=== PATIENT | male | born 1945 | race Caucasian/White ===

== ENCOUNTER 2019-02-20 11:42 | Inpatient (IN) ==
[2019-02-20] MEDS ORDERED: Piperacillin/Tazobactam 3.375 GM in Water for inj. (sterile) 20 ML 20 ML IVP ONE (12:29)
[2019-02-20] MEDS ORDERED: 0.9 % Sodium Chloride 1,000 ML IVC ONE ×2 (12:29→13:43)
--- NOTE | 2019-02-20 12:31 | Emergency Department Note ---
Disposition Clinical Impression: Elevated troponin, Elevated serum creatinine Dog bite Qualifiers: Encounter type: sequela Qualified Code(s): W54.0XXS - Bitten by dog, sequela Disposition: Admitted As Inpatient Condition: Fair [facility]errals: [facility] [Primary Care Provider[facility] - Forms: ED Satisfaction Letter Time of Disposition: 16:48 General Adult HPI - General Chief complaint: ED Altered Mental Status Stated complaint: Dog bite / infection Time Seen by Provider: 02/20/19 12:02 Source: family Limitations: altered mental status - History of Present Illness Pain Scale: 0 - Related Data Allergies Allergy/AdvReac Type Severity Reaction Status Date / Time No Known Allergies Allergy Verified 02/20/19 13:25 Past Medical History - Past Medical History Medical history: Reports: other - Social History Smoking Status: Former smoker Smokeless Tobacco Status: No Alcohol use: Reports: none Drug use: Reports: none Physical Exam - General Limitations: altered mental status Course Vital Signs Temperature 98.1 F 02/20/19 11:50 Pulse Rate 93 02/20/19 11:50 Respiratory Rate 16 02/20/19 11:50 Blood Pressure 0/0 02/20/19 11:50 O2 Sat by Pulse Oximetry 96 02/20/19 11:50 Temperature 98.1 F 02/20/19 11:50 Pulse Rate 82 02/20/19 16:27 Respiratory Rate 17 02/20/19 16:27 Blood Pressure 111/85 02/20/19 16:27 O2 Sat by Pulse Oximetry 98 02/20/19 16:27 Oxygen Delivery Oxygen Delivery Nasal Cannula Medical Decision Making - Lab Data Result diagrams: 02/20/19 13:29 02/20/19 13:29 Lab Results 02/20/19 02/20/19 02/20/19 Range/Units 13:29 13:29 13:29 WBC 2.8 L (4.3-11.1) K/mcL RBC 5.55 H (4.19-5.50) M/mcL Hgb 17.9 H (12.9-16.9) g/dL Hct 54.0 H (37.5-50.1) % MCV 97.3 (83.0-100.0) fL MCH 32.3 (28.0-33.3) pg MCHC 33.1 (31.6-35.5) g/dL RDW 13.5 (11.5-14.5) % Plt Count 43 L (140-400) K/mcL MPV 13.0 H (9.4-12.4) fL Immature Gran % 1.4 (0-4) % Seg Neutrophils % 79.2 % Lymphocytes % 15.8 % Monocytes % 2.9 % Eosinophils % 0.0 % Basophils % 0.7 % Neutrophils # 2.2 (1.6-8.9) K/mcL Lymphocytes # 0.4 L (0.6-4.6) K/mcL Monocytes # 0.1 (0.0-1.3) K/mcL Eosinophils # 0.0 (0.0-0.6) K/mcL Basophils # 0.0 (0.0-0.2) K/mcL Reactive Lymphocytes Present A (Not Present) Platelet Estimate Decreased L (Normal) Immature Plt Fraction 9.4 H (1.1-6.1) % Anisocytosis 1+ A (Not Present) Sodium 140 (136-145) mEq/L Potassium 4.3 (3.5-5.1) mEq/L Chloride 101 (98-107) mEq/L Carbon Dioxide 23 (23-29) mEq/L BUN 48 H (8-23) mg/dL Creatinine 2.61 H (0.70-1.30) mg/dL Est GFR ( Amer) 30 L (> 60) Est GFR (Non-Af Amer) 24 L (> 60) BUN/Creatinine Ratio 18 (6-26) Glucose 135 H (70-105) mg/dL Calculated Osmolality 305 H (280-300) Lactic Acid 2.0 (0.5-2.2) mmol/L Calcium 9.4 (8.6-10.3) mg/dL Phosphorus 5.2 H (2.7-4.5) mg/dL Magnesium 3.1 H (1.6-2.6) mg/dL Total Bilirubin 1.1 H (0.3-1.0) mg/dL Direct Bilirubin 0.3 H (0.0-0.2) mg/dL Indirect Bilirubin 0.8 (0.0-1.2) mg/dL AST 107 H (13-39) Units/L ALT 48 (7-52) Units/L Alkaline Phosphatase 64 (34-104) Units/L Troponin I 0.06 H* (< 0.04) ng/mL Serum Total Protein 7.5 (6.4-8.9) g/dL Albumin 4.3 (3.5-5.7) g/dL Globulin 3.2 (2.4-3.5) g/dL Albumin/Globulin Ratio 1.3 (1.1-2.2) Attestation Statement - Attestation Attestation: I examined this patient and my medical decision-making was reviewed with the Resident Physician. I agree with the documented findings, disposition and treatment plan as described except to the extent set forth below. Patient presents to the ED with a chief complaint of a leg infection. Patient was bit by a dog 6 days ago. More red and painful. Patient is also been increasingly weak. Not eating or drinking. On examination he has 2 wounds on the left lower extremity. Erythema around the medial wound. Drainage from the puncture wound bilaterally. Plan. Septic workup. Antibiotics. Admission. Low blood pressure responded nicely to IV fluid bolus. He is received IV antibiotics of vancomycin and Zosyn. Wound and blood culture sent. Patient hemodynamically stable at this time. Accepted to medicine. Tibia/Fibula X-Ray 02/20/19 12:29 IMPRESSION: No acute bony abnormality. D/ / Jennie Ramirez Cha, MD / Jennie Ramirez Cha, MD Interpreting Provider: Jennie Ramirez Cha, MD revealed resident. Normal sinus rhythm with PACs. Inferior Q waves. Lateral T wave inversions.
[2019-02-20] MEDS ORDERED: *HR* FentaNYL (PF) 100 MCG/2 ML VIAL IVP ONE (12:53)
--- NOTE | 2019-02-20 13:02 | Emergency Department Note ---
Disposition Clinical Impression: Elevated troponin, Elevated serum creatinine Dog bite Qualifiers: Encounter type: sequela Qualified Code(s): W54.0XXS - Bitten by dog, sequela Disposition: Admitted As Inpatient Condition: Fair [facility]errals: [facility] [Primary Care Provider] - Forms: ED Satisfaction Letter Time of Disposition: 15:47 General Adult HPI - General Chief complaint: ED Altered Mental Status Stated complaint: Dog bite / infection Time Seen by Provider: 02/20/19 12:02 Source: family Limitations: altered mental status - History of Present Illness HPI Narrative: 73-year-old male past medical history of remote myocardial infarction presenting 6 days after being bit on the left ankle by his neighbor's dog. Family bedside states that the dog has not shown any symptoms of illness. He states he is up-to-date on his tetanus vaccination. Patient states he is having significant pain of the left ankle without radiation. Patient also states that he has some dizziness but states that this is chronic at baseline. Patient denies lightheadedness, dizziness, headache, chest pain or shortness of breath, abdominal pain nausea vomiting hematuria hematochezia or any other concerns or complaints at this time. Pain Scale: 0 - Related Data Allergies Allergy/AdvReac Type Severity Reaction Status Date / Time No Known Allergies Allergy Verified 02/20/19 13:25 Review of Systems: *See History of Present Illness for more detail Constitutional: Denies: fever, chills Cardiovascular: Denies: chest pain Respiratory: Denies: dyspnea, cough, hemoptysis Gastrointestinal: Denies: abdominal pain, nausea, vomiting, diarrhea, constipat ion, hematemesis, melena, hematochezia Genitourinary: Denies: hematuria Musculoskeletal: Admits to significant pain of the left ankle due to dog bite. Denies: back pain, neck pain Integumentary: Denies: rash Neurological: Admits to lightheadedness and dizziness. Denies: headache, weakness, numbness, paresthesias, difficulty with ambulation. Endocrine: Denies: fatigue Review of Systems: As Per HPI Limitations: ROS unobtainable due to patients medical condition Past Medical History - Past Medical History Medical history: Reports: other - Social History Smoking Status: Former smoker Smokeless Tobacco Status: No Alcohol use: Reports: none Drug use: Reports: none Physical Exam Constitutional: Patient appears ulcerative baseline, otherwise No acute distress Neuro: GCS 15, no overt focal neurological deficits Head: Atraumatic, normocephalic Eyes: Pupils equal, round and reactive to light, no scleral icterus, no conjunctival injection Neck: Trachea midline without deviation. Anterior neck is supple without swelling. *Chest: Symmetric chest wall rise *Heart: Cardiac rhythm and rate are regular with S1 and S2 , no S3 or S4 appreciated, no murmurs, gallops, rubs, or clicks. *Lungs: Lungs are clear to auscultation bilaterally, without accessory muscle use or prolonged expiratory phase. No wheezes, rhonchi or stridor appreciated. Abdomen: Abdomen is flat, soft to palpation, normal bowel sounds. No abdominal bruit auscultated. Non-distended, non-rigid, no organomegaly, no ascites appreciated. No pulsatile mass, no tenderness or guarding to palpation in all f our quadrants, no rebound Extremities: Normal capillary refill without evidence of pedal edema, joint swelling or erythema. Pulses/motor/sensory intact in bilateral lower ext remities. Patient has approximately 6 inch gash noted to his medial malleoli on the left foot with a puncture jennifer over the left anterior talus. There is erythema noted around these jhaveri without significant cellulitic change or exudate.. Psychiatric exam: Patient displays a normal affect and mood for the environment. No overt signs of hallucination. Integumentary: warm, dry, intact, normal color. No rash, cyanosis, diaphoresis, erythema, or pallor - General Limitations: altered mental status Course Course Narrative: Sepsis workup Troponin EKG, x-ray Treatment: Broad-spectrum antibiotics, fentanyl, IV fluids. Vital Signs Temperature 98.1 F 02/20/19 11:50 Pulse Rate 93 02/20/19 11:50 Respiratory Rate 16 02/20/19 11:50 Blood Pressure 0/0 02/20/19 11:50 O2 Sat by Pulse Oximetry 96 02/20/19 11:50 Temperature 98.1 F 02/20/19 11:50 Pulse Rate 72 02/20/19 15:17 Respiratory Rate 18 02/20/19 15:17 Blood Pressure 108/68 02/20/19 15:17 O2 Sat by Pulse Oximetry 97 02/20/19 15:17 Oxygen Delivery Oxygen Delivery Nasal Cannula Medical Decision Making - [facility] Narrative Medical decision making narrative: Patient laboratory consisted for elevated creatinine and troponin Imaging negative as well as EKG for acute pathology Patient will be admitted to hospitalist medicine service for IV antibiotics due to dog bite as well as further evaluation and management of elevated creatinine troponin. Patient and family bedside verbalized understanding and agreement with this plan. - Lab Data Lab results reviewed: Yes I reviewed the patient's lab results. Result diagrams: 02/20/19 13:29 02/20/19 13:29 Lab Results 02/20/19 02/20/19 02/20/19 Range/Units 13:29 13:29 13:29 WBC 2.8 L (4.3-11.1) K/mcL RBC 5.55 H (4.19-5.50) M/mcL Hgb 17.9 H (12.9-16.9) g/dL Hct 54.0 H (37.5-50.1) % MCV 97.3 (83.0-100.0) fL MCH 32.3 (28.0-33.3) pg MCHC 33.1 (31.6-35.5) g/dL RDW 13.5 (11.5-14.5) % Plt Count 43 L (140-400) K/mcL MPV 13.0 H (9.4-12.4) fL Immature Gran % 1.4 (0-4) % Seg Neutrophils % 79.2 % Lymphocytes % 15.8 % Monocytes % 2.9 % Eosinophils % 0.0 % Basophils % 0.7 % Neutrophils # 2.2 (1.6-8.9) K/mcL Lymphocytes # 0.4 L (0.6-4.6) K/mcL Monocytes # 0.1 (0.0-1.3) K/mcL Eosinophils # 0.0 (0.0-0.6) K/mcL Basophils # 0.0 (0.0-0.2) K/mcL Reactive Lymphocytes Present A (Not Present) Platelet Estimate Decreased L (Normal) Immature Plt Fraction 9.4 H (1.1-6.1) % Anisocytosis 1+ A (Not Present) Sodium 140 (136-145) mEq/L Potassium 4.3 (3.5-5.1) mEq/L Chloride 101 (98-107) mEq/L Carbon Dioxide 23 (23-29) mEq/L BUN 48 H (8-23) mg/dL Creatinine 2.61 H (0.70-1.30) mg/dL Est GFR ( Amer) 30 L (> 60) Est GFR (Non-Af Amer) 24 L (> 60) BUN/Creatinine Ratio 18 (6-26) Glucose 135 H (70-105) mg/dL Calculated Osmolality 305 H (280-300) Lactic Acid 2.0 (0.5-2.2) mmol/L Calcium 9.4 (8.6-10.3) mg/dL Phosphorus 5.2 H (2.7-4.5) mg/dL Magnesium 3.1 H (1.6-2.6) mg/dL Total Bilirubin 1.1 H (0.3-1.0) mg/dL Direct Bilirubin 0.3 H (0.0-0.2) mg/dL Indirect Bilirubin 0.8 (0.0-1.2) mg/dL AST 107 H (13-39) Units/L ALT 48 (7-52) Units/L Alkaline Phosphatase 64 (34-104) Units/L Troponin I 0.06 H* (< 0.04) ng/mL Serum Total Protein 7.5 (6.4-8.9) g/dL Albumin 4.3 (3.5-5.7) g/dL Globulin 3.2 (2.4-3.5) g/dL Albumin/Globulin Ratio 1.3 (1.1-2.2) - Radiology Data Radiology results reviewed: Yes I reviewed the patient's radiology results. Tibia/Fibula X-Ray 02/20/19 12:29 IMPRESSION: No acute bony abnormality. D/ / Jennie Ramirez Cha, MD / Jennie Ramirez Cha, MD Interpreting Provider: Jennie Ramirez Cha, MD - EKG Data EKG #1 EKG attestation: Yes I reviewed and interpreted this EKG. EKG results narrative: Patient EKG shows sinus rhythm with atrial premature complexes borderline left axis deviation heart of 79 bpm, LA interval of 168 ms, QRS treatment of a 2 ms, QT/QTc interval 3 through 4/3 at 3 ms respectively. There are no significant ST segment elevations, depressions, pathologic Q waves, abnormal T-wave inversions, or signs of acute ischemic change. This is no prior EKG available for comparison.
[2019-02-20 13:53] LABS: Basophils % 0.7 %; Hemoglobin 17.9 g/dL (12.9-16.9); Immature Granulocytes % 1.4 % (0-4)
[2019-02-20 13:55] LABS: Immature Platelets 9.4 % (1.1-6.1); Lymphocytes # 0.4 K/mcL (0.6-4.6); Lymphocytes % 15.8 %; Mean Corpuscular HGB Conc 33.1 g/dL (31.6-35.5); Mean Corpuscular Hemoglobin 32.3 pg (28.0-33.3); Mean Corpuscular Volume 97.3 fL (83.0-100.0); Monocytes # 0.1 K/mcL (0.0-1.3); Monocytes % 2.9 %; Neutrophils # 2.2 K/mcL (1.6-8.9); Platelet Count 43 K/mcL (140-400); Red Blood Count 5.55 M/mcL (4.19-5.50); Red Cell Distribution Width 13.5 % (11.5-14.5); Segmented Neutrophils % 79.2 %; White Blood Count 2.8 K/mcL (4.3-11.1)
[2019-02-20 14:16] LABS: Anisocytosis 1+ (Not Present); Platelet Estimate Decreased (Normal); Reactive Lymphocytes Present (Not Present)
[2019-02-20 14:23] LABS: Albumin 4.3 g/dL (3.5-5.7); Albumin/Globulin Ratio 1.3 (1.1-2.2); Bilirubin,Direct 0.3 mg/dL (0.0-0.2); Bilirubin,Indirect 0.8 mg/dL (0.0-1.2); Bilirubin,Total 1.1 mg/dL (0.3-1.0); Calcium 9.4 mg/dL (8.6-10.3); Globulin 3.2 g/dL (2.4-3.5); Magnesium 3.1 mg/dL (1.6-2.6); Phosphorous 5.2 mg/dL (2.7-4.5); Potassium 4.3 mEq/L (3.5-5.1); Total Protein 7.5 g/dL (6.4-8.9); Troponin I 0.06 ng/mL (< 0.04)
[2019-02-20] MEDS ORDERED: 0.9 % Sodium Chloride 1,000 ML IVC SCH (16:45)
[2019-02-20] MEDS ORDERED: Naloxone 0.4 MG/ML INJ IVP PRN (17:11)
[2019-02-20] MEDS ORDERED: *HR* HYDROcodone/Acet 5/325 mg TABLET PO PRN (17:11)
[2019-02-20] MEDS ORDERED: MOM Conc 10 ML UD.LIQ PO PRN (17:11)
--- NOTE | 2019-02-20 17:19 | Internal Med History&Physical ---
Date of Encounter: 02/20/19 Time of Encounter: 17:12 Internal Medicine - H&P: HPI Chief complaint: ankle pain Admitted From: Emergency Dept Plans for Post Hospital Care: Home History of present illness: Mr. Lemos is a 73 year old male with no significant past medical history who does not follow up with physicians who presents with left ankle pain after a dog bite 7 days ago. It was "the preacher down the road's bull dog" that bit him. As far as he knows it is a healthy dog. Patient is not the best historian and does not answer appropriately at times. There was no family members at bedside. He tells me that he lives with his . Talking to the ED physician did tell me that the patient has been acting like this since he presented. They believe he has dementia . He was alert to self and place only JACOB. Denies fever and came in due to the pain mainly. left tib/fib xray is negative in the ED. BP low on p resentation but came up with IV fluids. Was given Zosyn and vancomycin in the ED. patient slept in the ED were significant for leukopenia with a WBC count of 2.8. Hemoglobin was 17.9. Platelets were 43 only. Other labs were significant for creatinine of 2.6 with a BUN 48. Nothing to compare to in the past. Phosphorus was 5.2 and magnesium was 3.1. Total bilirubin was 1.1 and direct bili was 0.3. AST is elevated at 107 but normal ALT and alkaline phosphatase. Denies headache, fever, chills, dizziness, chest pain, shortness of breath, abdominal pain, diarrhea, constipation, urinary symptoms, or neurological symptoms. Past Med Surg Social Fam HX - Past Medical History Medical history: other Additional medical history: enlarged heart - Social History Smoking Status: Former smoker Smokeless Tobacco Status: No Alcohol use: none Drug use: none Internal Medicine - H&P: Meds Allergy/AdvReac Type Severity Reaction Status Date / Time No Known Allergies Allergy Verified 02/20/19 13:25 All Systems PM: A 10-system review of systems was performed and is negative for pertinent findings except as documented above in the HPI. - Constitutional Vitals: Temp Pulse Resp BP Pulse Ox 98.1 F 82 17 111/85 98 02/20/19 11:50 02/20/19 16:27 02/20/19 16:27 02/20/19 16:27 02/20/19 16:27 Exam: GEN: NAD HEENT: AT, NC, No cyanosis, oral mucosa is moist, No JVD Lymphatics: No lymphadenoapthy Eyes: Extrocular muscles intact, anicteric CVS:RRR. S1, S2, No m/r/g RESP: CTAB ABD: Soft, NT, ND, +BS EXT: No edema, left medial malleolus laceration noted with scattered but no drainage that extends across the medial malleolus horizontally., Other laceration is on the distal leg that is smaller in size with no drainage 2+ DP NEURO: Alert and oriented 2 but otherwise nonfocal, CN II-XII intact, No focal motor or sensory deficits Psych: Cooperative, Not anxious or depressed Internal Med - H&P Results - Labs CBC & Chem 7: 02/20/19 13:29 02/20/19 13:29 Labs: Short CBC 02/20/19 Range/Units 13:29 WBC 2.8 L (4.3-11.1) K/mcL Hgb 17.9 H (12.9-16.9) g/dL Hct 54.0 H (37.5-50.1) % Plt Count 43 L (140-400) K/mcL Neutrophils # 2.2 (1.6-8.9) K/mcL BMP 02/20/19 13:29 Sodium 140 Potassium 4.3 Chloride 101 Carbon Dioxide 23 BUN 48 H Creatinine 2.61 H Glucose 135 H Calcium 9.4 Cardiac Enzymes 02/20/19 Range/Units 13:29 Troponin I 0.06 H* (< 0.04) ng/mL Liver Function 02/20/19 Range/Units 13:29 Total Bilirubin 1.1 H (0.3-1.0) mg/dL Direct Bilirubin 0.3 H (0.0-0.2) mg/dL AST 107 H (13-39) Units/L ALT 48 (7-52) Units/L Alkaline Phosphatase 64 (34-104) Units/L Albumin 4.3 (3.5-5.7) g/dL - Impressions ITS Impressions Tibia/Fibula X-Ray 02/20/19 12:29 IMPRESSION: No acute bony abnormality. D/ / Jennie Ramirez Cha, MD / Jennie Ramirez Cha, MD Interpreting Provider: Jennie Ramirez Cha, MD - Assessment and Plan (1) Cellulitis Current Visit: Yes Status: Acute Assessment and plan: We will place patient on Zosyn and Flagyl. We will consult ID given dog bite. Follow-up on blood cultures. I do not see any drainage from the bites that can be cultured we will get a CT of the ankle. Check CRP and ESR Qualifiers: Site of cellulitis: extremity Site of cellulitis of extremity: lower extremity Laterality: left Qualified Code(s): L03.116 - Cellulitis of left lower limb (2) KEMI (acute kidney injury) Current Visit: Yes Status: Acute Assessment and plan: We will place on IV fluids for now. Unknown baseline. If no significant improvement we will check a renal ultrasound. Possibly dehydration and possibility of sepsis. Avoid nephrotoxins (3) Transaminitis Current Visit: Yes Status: Acute Assessment and plan: Has elevated LFTs possibly due to sepsis. I am worried about alcohol issues that he is not telling us about given his thrombocytopenia as well. We will check right upper quadrant ultrasound (4) Elevated troponin Current Visit: Yes Status: Acute Assessment and plan: Likely demand ischemia due infection vs KEMI. Will trend and place on tele. EKG with nothing acute indicative of ischemia (5) Thrombocytopenia Current Visit: Yes Status: Acute Assessment and plan: Unsure if chronic. I wonder if he has liver issues. Will monitor for now. (6) Metabolic encephalopathy Current Visit: Yes Status: Acute Assessment and plan: Possibly has some dementia at baseline. He is aware only to self and place. Maybe due to infection. Will check TSH, b12, folate, ammonia level. (7) DVT prophylaxis Current Visit: Yes Status: Acute Assessment and plan: SCDs - Time Spent With Patient Total time spent is greater than 50% in coordination of care (as documented) at patient's floor/unit and/or counseling patient:
[2019-02-20] MEDS: 0.9 % Sodium Chloride 1,000 ML IVC SCH (20:54)
[2019-02-20 20:59] LABS: Folate 9.9 ng/mL (3.0-16.0)
[2019-02-20] MEDS: MetroNIDAZOLE 500 MG/100 ML 500 MG/100 ML BAG IVPB SCH (23:05)
[2019-02-20] MEDS: Piperacillin/Tazobactam 3.375 GM in 0.9 % Sodium Chloride Mini Bag 100 ML IVPB SCH (23:22)
[2019-02-21] MEDS: 0.9 % Sodium Chloride 1,000 ML IVC SCH ×4 (02:06→23:47)
--- NOTE | 2019-02-21 07:52 | Internal Med Progress Note ---
Hospitalist Progress Note - Encounter Date of Encounter: 02/21/19 Time of Encounter: 07:50 - Subjective Interval History: Patient was seen and examined. No acute events. Seems to be more awake but still only A/O x2. CT lower ext on the left showed subcutaneous edema and a mention of small amount of subcutaneous hemorrhage and small amount of hemorrhage within anterior compartment musculature. Had a fever up to 100.6 yesterday. Admitted due to left leg pain from a dog bite 7 days ago. Denies alcohol use - Exam Vitals: Temp Pulse Resp BP Pulse Ox 99.3 F 99 19 146/78 91 02/21/19 07:29 02/21/19 07:29 02/21/19 07:29 02/21/19 07:29 02/21/19 07:29 Exam: GEN: NAD H CVS:RRR. S1, S2, No m/r/g RESP: CTAB ABD: Soft, NT, ND, +BS EXT: No edema, left medial malleolus laceration noted with scattered but no drainage that extends across the medial malleolus horizontally., Other laceration is on the distal leg that is smaller in size with no drainage 2+ DP NEURO: Alert and oriented 2 but otherwise nonfocal, CN II-XII intact, No focal motor or sensory deficits - Assessment and Plan (1) Cellulitis Current Visit: Yes Status: Acute Assessment and Plan: c/w Zosyn and Flagyl. ID to see. Discussed CT findings with ACS who will see him. Follow-up on blood cultures. I do not see any drainage from the bites that can be cultured we will get a CT of the ankle. ESR and CRP elevated. Check CPK (2) KEMI (acute kidney injury) Current Visit: Yes Status: Acute Assessment and Plan: c/w on IV fluids for now. Unknown baseline. f/u on labs this am. If no significant improvement we will check a renal ultrasound. Possibly dehydration and possibility of sepsis. Avoid nephrotoxins (3) Transaminitis Current Visit: Yes Status: Acute Assessment and Plan: Has elevated LFTs possibly due to sepsis. Denies alcohol use. We will check right upper quadrant ultrasound. f/u on labs this am. (4) Elevated troponin Current Visit: Yes Status: Acute Assessment and Plan: Likely demand ischemia due infection vs KEMI. trended and remains stable at .06, .07, .07. EKG with nothing acute indicative of ischemia (5) Thrombocytopenia Current Visit: Yes Status: Acute Assessment and Plan: Unsure if chronic. Also has leukopenia. I wonder if he has liver issues. Will monitor for now but may end up consulting hematology. RUQ US pending. (6) Metabolic encephalopathy Current Visit: Yes Status: Acute Assessment and Plan: Possibly has some dementia at baseline. TSH, b12, folate, ammonia level normal. More talkative this am but still only A/O x2. (7) DVT prophylaxis Current Visit: Yes Status: Acute Assessment and Plan: SCDs - Time Spent with Patient Total time spent is greater than 50% in coordination of care (as documented) at patient's floor/unit and/or counseling patient: Internal Medicine: Result - Labs CBC & Chem 7: 02/21/19 08:09 02/21/19 08:09 Labs: Short CBC 02/20/19 Range/Units 13:29 WBC 2.8 L (4.3-11.1) K/mcL Hgb 17.9 H (12.9-16.9) g/dL Hct 54.0 H (37.5-50.1) % Plt Count 43 L (140-400) K/mcL Neutrophils # 2.2 (1.6-8.9) K/mcL BMP 02/20/19 13:29 Sodium 140 Potassium 4.3 Chloride 101 Carbon Dioxide 23 BUN 48 H Creatinine 2.61 H Glucose 135 H Calcium 9.4 Cardiac Enzymes 02/20/19 02/20/19 02/21/19 Range/Units 13:29 19:54 03:08 Troponin I 0.06 H* 0.07 H* 0.07 H* (< 0.04) ng/mL Liver Function 02/20/19 Range/Units 13:29 Total Bilirubin 1.1 H (0.3-1.0) mg/dL Direct Bilirubin 0.3 H (0.0-0.2) mg/dL AST 107 H (13-39) Units/L ALT 48 (7-52) Units/L Alkaline Phosphatase 64 (34-104) Units/L Albumin 4.3 (3.5-5.7) g/dL - Impressions Impressions Tibia/Fibula X-Ray 02/20/19 12:29 IMPRESSION: No acute bony abnormality. D/ / Jennie Ramirez Cha, MD / Jennie Ramirez Cha, MD Interpreting Provider: Jennie Ramirez Cha, MD Lower Extremity CT 02/20/19 17:08 IMPRESSION: 1. Subcutaneous edema over the anterior aspect of the distal leg with small amount of subcutaneous hemorrhage and small amount of hemorrhage within the anterior compartment musculature. No radiopaque foreign body. 2. No acute osseous abnormality. D/ / Yung Servin MD / Yung Servin MD Interpreting Provider: Yung Servin MD Consult Discharge Plan - Plan [facility]errals: [facility] [Primary Care Provider] - (1) Cellulitis Qualifiers: Site of cellulitis: extremity Site of cellulitis of extremity: lower extremity Laterality: left Qualified Code(s): L03.116 - Cellulitis of left lower limb
[2019-02-21 08:18] LABS: Mean Platelet Volume 11.8 fL (9.4-12.4)
[2019-02-21 08:20] LABS: Hematocrit 44.8 % (37.5-50.1); Hemoglobin 14.4 g/dL (12.9-16.9); Lymphocytes # 0.3 K/mcL (0.6-4.6); Mean Corpuscular HGB Conc 32.1 g/dL (31.6-35.5); Mean Corpuscular Hemoglobin 31.9 pg (28.0-33.3); Mean Corpuscular Volume 99.1 fL (83.0-100.0); Monocytes # 0.1 K/mcL (0.0-1.3); Red Blood Count 4.52 M/mcL (4.19-5.50); Red Cell Distribution Width 13.7 % (11.5-14.5); White Blood Count 1.9 K/mcL (4.3-11.1)
[2019-02-21 08:38] LABS: Albumin 3.3 g/dL (3.5-5.7); Albumin/Globulin Ratio 1.3 (1.1-2.2); Bilirubin,Total 0.8 mg/dL (0.3-1.0); Calcium 8.3 mg/dL (8.6-10.3); Globulin 2.6 g/dL (2.4-3.5); Magnesium 2.4 mg/dL (1.6-2.6); Platelet Count 28 K/mcL (140-400); Potassium 4.2 mEq/L (3.5-5.1); Total Protein 5.9 g/dL (6.4-8.9)
[2019-02-21 08:49] LABS: Immature Platelets 8.9 % (1.1-6.1)
[2019-02-21] MEDS: MetroNIDAZOLE 500 MG/100 ML 500 MG/100 ML BAG IVPB SCH (08:50)
[2019-02-21] MEDS: Piperacillin/Tazobactam 3.375 GM in 0.9 % Sodium Chloride Mini Bag 100 ML IVPB SCH (08:50)
--- NOTE | 2019-02-21 09:03 | Electrocardiograph Report ---
[place] [id number] Test Date: 2019-02-20 Pat Name: Jae Lemos Department: [id number] Room: [facility] Gender: M Wool Supplier: : 1945 Requested By: Blaire See Order Number: [id number] Reading MD: Roney Moore Measurements Intervals [place] Rate: 79 P: 34 [place]: 168 QRS: -18 QRSD: 82 T: 75 QT: 334 QTc: 383 Interpretive Statements Sinus rhythm Atrial premature complexes Borderline left axis deviation low voltage, extremity leads Abnormal R-wave progression, late transition Baseline wander in lead(s) V1 Electronically Signed On 02-21-2019 9:01:52 EDT by Roney Moore
[2019-02-21 09:35] LABS: Neutrophils # 1.6 K/mcL (1.6-8.9)
[2019-02-21 09:38] LABS: Platelet Estimate Decreased (Normal); Reactive Lymphocytes Present (Not Present)
--- NOTE | 2019-02-21 10:50 | AcuteCare Surgery Consult Note ---
Date of Encounter: 02/21/19 Time of Encounter: 10:30 Assessment and Plan (1) Dog bite Current Visit: Yes Status: Acute Polymicrobial soft tissue infection secondary to dog bite. We would recommend continue with broad-spectrum antibiotics. We will add dressing changes with calcium alginate with silver. Qualifiers: Encounter type: initial encounter Qualified Code(s): W54.0XXA - Bitten by dog, initial encounter History of Present Illness Consult date: 02/21/19 Reason for consult: other (Dog bite) History of present illness: The patient is a 73-year-old male who sustained a dog bite to the left ankle. This was several days prior to admission to the hospital. He developed a very painful area of cellulitis involving the left ankle extending on the dorsum of the left foot he presented to the emergency room. He was found to have leukopenia with a white blood cell count 2800. CAT scan of the left lower extremity demonstrated some subfascial bleeding and inflammation, however, there was no subcutaneous air or fascia air. There is no evidence of deep abscess or necrosis. On physical examination he has 2 open wounds one on the lateral aspect of the ankle just above the lateral malleolus and one on the medial ankle just below and posterior to the medial malleolus. Both are draining purulent material. The patient appears to have a polymicrobial soft tissue infection secondary to dog bite. No debridement is necessary. No drainage of abscess is necessary. We would recommend continue with broad-spectrum antibiotic as well as dressing changes with calcium alginate with silver Past Med Surg Social Fam HX - Past Medical History Medical history: other Additional medical history: enlarged heart - Social History Smoking Status: Former smoker Smokeless Tobacco Status: No Alcohol use: none Drug use: none Medications and Allergies Allergy/AdvReac Type Severity Reaction Status Date / Time No Known Allergies Allergy Verified 02/20/19 13:25 Review of Systems All systems PM: The remainder of the systems were reviewed and are negative General Surgery Exam Initial Vital Signs Temp Pulse Resp BP Pulse Ox 98.1 F 93 16 0/0 96 02/20/19 11:50 02/20/19 11:50 02/20/19 11:50 02/20/19 11:50 02/20/19 11:50 - General physical appearance well developed, well nourished, no distress, other (Disorientation) - Neck no masses, no bruits, trachea midline, no lymphadectomy, no venous distension - Respiratory normal expansion, normal respiratory effort, clear to percussion, clear to auscultation - Cardiovascular Cardiovascular exam: Present: RRR, distant heart sounds - Abdomen Abdomen general surgery: Present: bowel sounds present, soft, non tender - Integumentary Integumentary general surgery: Present: other (Open bite wounds just above the lateral malleolus and just below the medial malleolus of the left ankle. There is some surrounding cellulitis extending onto the dorsum of the foot) - Neurologic Present: CN 2-12 grossly intact, normal coordination, normal sensation - Psychiatric Psychiatric general surgery: Present: other (The patient does not respond appropriately to my questions. He is not oriented to time he is oriented to person and place) - Additional Findings Palpable dorsalis pedis pulse left foot Exam Initial Vital Signs Temp Pulse Resp BP Pulse Ox 98.1 F 93 16 0/0 96 02/20/19 11:50 02/20/19 11:50 02/20/19 11:50 02/20/19 11:50 02/20/19 11:50 Results - Labs 02/21/19 08:09 02/21/19 08:09 Abnormal lab results WBC 1.9 K/mcL (4.3-11.1) L 02/21/19 08:09 RBC 5.55 M/mcL (4.19-5.50) H 02/20/19 13:29 Hgb 17.9 g/dL (12.9-16.9) H 02/20/19 13:29 Hct 54.0 % (37.5-50.1) H 02/20/19 13:29 Plt Count 28 K/mcL (140-400) L* 02/21/19 08:09 MPV 13.0 fL (9.4-12.4) H 02/20/19 13:29 10.0 % (0-4) H 02/21/19 08:09 0.3 K/mcL (0.6-4.6) L 02/21/19 08:09 Present (Not Present) A 02/21/19 08:09 Decreased (Normal) L 02/21/19 08:09 Immature Plt Fraction 8.9 % (1.1-6.1) H 02/21/19 08:09 1+ (Not Present) A 02/20/19 13:29 ESR 25 mm/hr (0-10) H 02/20/19 13:29 Chloride 109 mEq/L (98-107) H 02/21/19 08:09 BUN 36 mg/dL (8-23) H 02/21/19 08:09 1.71 mg/dL (0.70-1.30) H 02/21/19 08:09 Est GFR ( Amer) 48 (> 60) L 02/21/19 08:09 Est GFR (Non-Af Amer) 40 (> 60) L 02/21/19 08:09 Glucose 108 mg/dL (70-105) H 02/21/19 08:09 309 (280-300) H 02/21/19 08:09 Calcium 8.3 mg/dL (8.6-10.3) L 02/21/19 08:09 Phosphorus 5.2 mg/dL (2.7-4.5) H 02/20/19 13:29 Magnesium 3.1 mg/dL (1.6-2.6) H 02/20/19 13:29 1.1 mg/dL (0.3-1.0) H 02/20/19 13:29 0.3 mg/dL (0.0-0.2) H 02/20/19 13:29 AST 85 Units/L (13-39) H 02/21/19 08:09 486 Units/L (30-223) H 02/21/19 08:09 0.07 ng/mL (< 0.04) H* 02/21/19 03:08 18 mg/L (Less than 10) H 02/20/19 13:29 5.9 g/dL (6.4-8.9) L 02/21/19 08:09 3.3 g/dL (3.5-5.7) L 02/21/19 08:09 Vitamin B12 139 pg/mL (250-1100) L 02/20/19 19:54 Diabetes panel 02/20/19 02/21/19 Range/Units 13:29 08:09 Sodium 140 145 (136-145) mEq/L Potassium 4.3 4.2 (3.5-5.1) mEq/L Chloride 101 109 H (98-107) mEq/L Carbon Dioxide 23 24 (23-29) mEq/L BUN 48 H 36 H (8-23) mg/dL Creatinine 2.61 H 1.71 H (0.70-1.30) mg/dL Glucose 135 H 108 H (70-105) mg/dL Calcium 9.4 8.3 L (8.6-10.3) mg/dL AST 107 H 85 H (13-39) Units/L ALT 48 33 (7-52) Units/L Alkaline Phosphatase 64 59 (34-104) Units/L Albumin 4.3 3.3 L (3.5-5.7) g/dL Thyroid panel 02/20/19 Range/Units 19:54 TSH 2.115 (0.340-5.600) mcIU/mL Calcium panel 02/20/19 02/21/19 Range/Units 13:29 08:09 Calcium 9.4 8.3 L (8.6-10.3) mg/dL Phosphorus 5.2 H (2.7-4.5) mg/dL Albumin 4.3 3.3 L (3.5-5.7) g/dL Pituitary panel 02/20/19 02/20/19 02/21/19 Range/Units 13:29 19:54 08:09 Sodium 140 145 (136-145) mEq/L Potassium 4.3 4.2 (3.5-5.1) mEq/L Chloride 101 109 H (98-107) mEq/L Carbon Dioxide 23 24 (23-29) mEq/L BUN 48 H 36 H (8-23) mg/dL Creatinine 2.61 H 1.71 H (0.70-1.30) mg/dL Glucose 135 H 108 H (70-105) mg/dL Calcium 9.4 8.3 L (8.6-10.3) mg/dL TSH 2.115 (0.340-5.600) mcIU/mL Adrenal panel 02/20/19 02/21/19 Range/Units 13:29 08:09 Sodium 140 145 (136-145) mEq/L Potassium 4.3 4.2 (3.5-5.1) mEq/L Chloride 101 109 H (98-107) mEq/L Carbon Dioxide 23 24 (23-29) mEq/L BUN 48 H 36 H (8-23) mg/dL Creatinine 2.61 H 1.71 H (0.70-1.30) mg/dL Glucose 135 H 108 H (70-105) mg/dL Calcium 9.4 8.3 L (8.6-10.3) mg/dL Total Bilirubin 1.1 H 0.8 (0.3-1.0) mg/dL AST 107 H 85 H (13-39) Units/L ALT 48 33 (7-52) Units/L Alkaline Phosphatase 64 59 (34-104) Units/L Albumin 4.3 3.3 L (3.5-5.7) g/dL All other labs normal. - Imaging Chest x-ray: image reviewed CT scan - chest: image reviewed Additional studies: I personally reviewed the CAT scan of the left lower extremity. There is no subcutaneous or subfascial air. There is no evidence of abscess. He has mild inflammation at the area of the dog bite and possibly some minor bleeding in the anterior compartment. No evidence of deep abscess or tissue necrosis Consult Discharge Plan - Plan [facility]errals: [facility] [Primary Care Provider] -
[2019-02-21] MEDS: Acetaminophen 325 MG TABLET PO PRN ×2 (12:45→22:48)
--- NOTE | 2019-02-21 14:34 | Infectious Disease Consult ---
Infectious Disease-Consult - Encounter Date/Time Date of Encounter: 02/21/19 Time of Encounter: 14:31 - Data of Consult Patient: new to practice Reason for consult: Dog bite Consult date: 02/21/19 Requesting Physician: Phyllis Bernal Primary Care Provider: [place]CP [place] - [facility] HPI: Mr. Lemos is a 73 year old male with a past medical cardiomegaly. The patient was admitted to the hospital 02/20/19 for elevated troponin, elevated creatinine, and dog bite. We are consulted 02/21/19 for further workup and treatment rec ommendations for left lower extremity dog bite. Briefly, the patient's a 73-year-old male with past medical history as stated above. The patient's altered mental status limits his ability to provide me with an accurate history so most of the information is obtained from the medical record. The patient sustained a dog bite to the left lower extremity 6 days prior to admission. Upon arrival, he was afebrile. He was mildly tachycardic, but was otherwise hemodynamically stable. He was noted to have leukopenia with thrombocytopenia and acute kidney injury. Lactic acid was normal. CRP was mildly elevated at 18. Total bilirubin was elevated at 1.1 with an AST of 107, PLT of 48, alkaline phosphatase 64. Troponin was high at 0.06. Tib/fib x-ray was negative. Blood cultures were obtained 2 sets are no growth. Wound culture is preliminarily no growth. His CT of the left lower extremity that showed subcutaneous edema of the anterior aspect of the distal leg with small amount of subcutaneous hemorrhage and small amount of hemorrhage within the anterior compartment musculature, but no radiopaque foreign body or acute osseous or abnormality was noted. He was started empirically on Zosyn and Flagyl and was admitted to the hospital for further evaluation. Since admission, the patient has had some intermittent low-grade fevers with a MAXIMUM TEMPERATURE of 100.6. Today, his leukopenia and thrombus cytopenia or worsen he has developed 10% bands. His acute kidney injury is improved. LFTs have normalized. He does have an elevated CK level of 486. Troponin remains elevated at 0.07. He underwent a liver ultrasound that showed findings consistent with fatty liver. Acute care surgery was consulted and did not recommend surgical intervention at this time. Currently, he is on Zosyn and Flagyl. We have been asked to evaluate and make further recommendations. During my exam today, the patient is able to tell me that he did sustain a dog bite about a week prior to admission. He states it was his neighbor's dog and he is unsure if dog was vaccinated. He denies any fevers or chills or rigors. Denies any headache or neck pain. Denies chest pain, shortness of breath, or cough. Denies nausea, vomiting, diarrhea, or constipation. Denies abdominal pain or urinary complaints. Complaints of pain in the left lower extremity, but otherwise denies any acute issues or concerns. Denies oral thrush or skin rashes. The patient states he lives at home with his . He is retired. He denies any tobacco or illicit drug use. Reports a remote history of heavy alcohol use, but nothing for several years. He denies any recent travel. Denies chronic infectious diseases. - ROS Review of Systems: All systems reviewed and no additional remarkable complaints except as stated. - Results CBC & Chem 7: 02/21/19 08:09 02/21/19 08:09 - Exam Vitals: Temp Pulse Resp BP Pulse Ox 100.1 F H 80 18 143/74 91 02/21/19 11:35 02/21/19 11:35 02/21/19 11:35 02/21/19 11:35 02/21/19 11:35 Exam: Head: Atraumatic, normal inspection, normocephalic. Eye: EOMI, PERRLA, no scleral icterus noted. ENT: Mucous membranes moist. No odontogenic infection noted. Neck: Normal inspection, no meningismus. Respiratory: Clear to auscultation. No rales, respiratory distress, rhonchi, or wheezes noted. Cardiovascular: Regular rate and rhythm, S1 and S2 audible. No murmurs, rubs, or gallops. GI: Soft, nondistended, normal bowel sounds. Tenderness noted with palpation. Extremities:No joint swelling, pedal edema, or tenderness noted. Linear wound noted to the medial aspect of the left ankle with beefy red wound bed. No surrounding erythema or warmth noted. Tenderness noted with palpation. Small amount of serous drainage noted on the dressing. Additional wound noted to the anterior aspect of the left ankle without surrounding erythema or warmth. Tenderness noted with palpation. Small amount serous drainage noted on the dressing. Back: Normal inspection. No vertebral tenderness noted. Neurological: Alert, oriented 2, no focal deficits. Appears somewhat confused. Psychiatric: normal affect, normal mood. Skin: Dry, intact, warm. Normal color. No rashes. Allergy/AdvReac Type Severity Reaction Status Date / Time No Known Allergies Allergy Verified 02/20/19 13:25 - Assessment and Plan (1) Sepsis Current Visit: Yes Status: Acute The patient had 2 sepsis criteria on admission with an acute kidney injury and abnormal liver function tests. He developed worsening leukopenia and bandemia today. Likely secondary to left foot cellulitis, but given the patient's leukopenia and thrombocytopenia and fatty liver noted on ultrasound, concerning for chronic etiologies as well. We do not have any additional labs to compare. Blood cultures drawn 02/20/19 are no growth to date 2 sets. Qualifiers: Sepsis type: sepsis due to unspecified organism Qualified Code(s): A41.9 - Sepsis, unspecified organism SNOMED Code(s): 64701000 (2) Dog bite Current Visit: Yes Status: Acute Location: Left ankle. The patient states it was his neighbor's dog and he is unsure if the dog was vaccinated. CT of the lower extremity showed subcutaneous edema over the anterior aspect of the distal leg with small amount subcutaneous hemorrhage and small amount of hemorrhage within the anterior compartment musculature, but no radiopaque foreign body or acute osseous abnormality. CRP mildly elevated at 18. CK elevated at 486. The patient states he is up-to-date on his tetanus vaccine, but I am not sure how reliable the history the patient is. Currently on Zosyn and Flagyl. Qualifiers: Encounter type: initial encounter Qualified Code(s): W54.0XXA - Bitten by dog, initial encounter SNOMED Code(s): 018181314, 080566435 (3) Cellulitis Current Visit: Yes Status: Acute Location: Left foot and ankle. Likely secondary to recent dog bite. CT of the left lower extremity negative for abscess or acute osseous abnormality. CRP mildly elevated at 18. ESR was checked. Acute care surgery team consult it. Does not feel that there is any indication for surgical intervention at this time. Currently on Zosyn and Flagyl. Qualifiers: Site of cellulitis: extremity Site of cellulitis of extremity: lower extremity Laterality: left Qualified Code(s): L03.116 - Cellulitis of left lower limb SNOMED Code(s): 392065886 (4) KEMI (acute kidney injury) Current Visit: Yes Status: Acute Etiology: Unclear. Infection versus other. Unsure what the patient's baseline is as he has not had any labs done here prior to this hospitalization. Consider nephrology to evaluate. Strict I's and O's. Avoid nephrotoxins and dose adjust medications. SNOMED Code(s): 02222761, 22212334 (5) Elevated troponin Current Visit: Yes Status: Acute Etiology: Unclear. The patient denies any chest pain. Further workup and management per the primary team. SNOMED Code(s): 856909241, 517947264, 272275853 (6) Transaminitis Current Visit: Yes Status: Acute Etiology: Unclear. Resolved. Liver ultrasound showed findings consistent with fatty liver disease. The patient states he has a remote history of heavy alcohol use. SNOMED Code(s): 121053125, 428478473 (7) Thrombocytopenia Current Visit: Yes Status: Acute Etiology: Unclear. Infectious versus chronic etiologies. Heme/Onc consulted. SNOMED Code(s): 676547025 (8) Metabolic encephalopathy Current Visit: Yes Status: Acute Patient appears to have AMS. He is A/O x2. Unsure if this is his baseline. There is no family at the bedside and nursing is not aware. Consider CT of the head. No meningeal signs. SNOMED Code(s): 06034699 - Recommendations Recommendations: Await wound cultures to finalize. Await blood cultures to finalize. Check ESR. Discontinue Zosyn. Discontinue flagyl. Start Unasyn 3 grams IV 6H. Duration of treatment depends on the clinical picture. Past Med Surg Social Fam HX - Past Medical History Medical history: other Additional medical history: enlarged heart - Social History Smoking Status: Former smoker Smokeless Tobacco Status: No Alcohol use: none Drug use: none Consult Discharge Plan - Plan [facility]errals: [facility] [Primary Care Provider] - - Attending Attestation I have personally performed a face to face evaluation on this patient. I have reviewed and agree with the care plan. History and Exam by me shows: This is an addendum to original report dictated by Em Page CNP. Please refer to Em's note for full detail. Patient is a 73-year-old gentleman apparently was bitten by a dog on the left ankle about a week prior to admission. Assessment and plan: 1.Sepsis 2.Dog bite left ankle: CT of the lower extremities shows subcutaneous edema but no radiographic foreign bodies or acute osseous abnormality 3.Cellulitis left foot and ankle 4.Acute kidney injury etiology not clear 5.Transaminitis patient apparently also had history of heavy alcohol use 6.Metabolic encephalopathy Recommendations Discontinue Zosyn Discontinue Flagyl Start Unasyn 3 g IV every 6 hours Once clinically doing better will consider switching to oral antibiotics
[2019-02-21] MEDS ORDERED: Cyanocobalamin (B-12) 1,000 MCG/ML VIAL SQ ONE (17:00)
--- NOTE | 2019-02-21 17:03 | Oncology Inp Consult Note ---
Date of Encounter: 02/21/19 Time of Encounter: 12:00 Assessment and Plan (1) Thrombocytopenia Status: Acute Assessment and plan: Possibly from infectious process, left lower extremity skin changes swelling imaging findings once suggestive of local inflammation/infection. CT scan findings reviewed. On antibiotics Zosyn which could further cause thrombocytopenia, leukopenia. Hemoglobin hematocrit repeated back to normal, less suspicious for hematologic disorder/thrombotic microangiopathy. Fatty liver additional imaging may be necessary at later date to rule out cirrhosis portal hypertension. Vital hepatitis panel ordered coag panel to be obtained review of peripheral smear by pathology. B12 deficiency, subcutaneous injection him a oral supplementation ordered. SPEP ordered. REsults awaited. ID recommendations for treatment of cellulitis without osteomyelitis. No debridement planned at this time. Continue to monitor clinically/labs. - Data of Consult Requesting Physician: Phyllis Bernal Primary Care Provider: JULIO NE - Consult Narrative Reason for consult: Thrombocytopenia History of present illness: 73-year-old male, with history of? enlarged heart, fatty liver, coronary artery disease per history, hospitalized with left ankle swelling, pain following a dog bite 6 days ago per history. He has altered mental status is baseline and is unable to give any history today. Patient underwent additional lab works that showed leukopenia and thrombocytopenia. Hemoglobin has declined to normal range since hospitalization. A CT scan of the lower extremity had shown, subcutaneous edema over the anterior aspect of the distal leg with small amount of subcutaneous hemorrhage in the anterior compartment musculature. He is hospitalized for cellulitis, subcutaneous infection and is on antibiotics with Zosyn. Additional lab work show a white vitamin B12 of around 137. Ultrasound of the liver has shown fatty liver. Past Med Surg Social Fam HX - Past Medical History Medical history: other Additional medical history: enlarged heart - Social History Smoking Status: Former smoker Smokeless Tobacco Status: No Alcohol use: none Drug use: none Medications and Allergies Allergy/AdvReac Type Severity Reaction Status Date / Time No Known Allergies Allergy Verified 02/20/19 13:25 ROS unobtainable: due to mental status Review of systems: Patient answers few questions but unable to answer many. He reports left leg swelling and pain and is able to show slight of infection. Other history unreliable. Oncology - Exam - Constitutional General appearance: no acute distress - Head Head exam: Present: atraumatic, normal inspection - Eye Eye exam: Present: sclera anicteric - ENT ENT exam: Present: mucous membranes dry - Neck Additional comments: no palpable adenopathy - Respiratory Respiratory exam: Present: CTAB - Cardiovascular Cardiovascular exam: Present: +S1, +S2 - GI/Abdominal GI/Abdominal exam: Present: soft Additional comments: no tenderness, no HSM - Extremities Exam Additional comments: Left ankle swelling, discoloration open areas in dressing. Warm - Neurological Exam Additional comments: awake, not oriented. Moves all 4 ext and obeys commands - Skin Additional comments: discoloration left lower ext Consult Discharge Plan - Plan [facility]errals: [facility] [Primary Care Provider] - Inpatient Charges Provider: Dr. Marco Lopez Consult - Inpatient: [id number]
[2019-02-21] MEDS: Ampicillin/Sulbactam 3,000 MG in 0.9 % Sodium Chloride Mini Bag 100 ML IVPB SCH ×2 (17:31→23:46)
[2019-02-21 17:57] LABS: Prothrombin Time 11.6 Seconds (9.4-12.1)
[2019-02-21 17:59] LABS: Activated Partial Thrombo Time 32.7 Seconds (26.0-36.0)
[2019-02-21 18:01] LABS: Hepatitis B Surface Antigen Nonreactive (Nonreactive)
[2019-02-21 18:30] LABS: Hepatitis C Virus Antibody Nonreactive (Nonreactive)
[2019-02-21] MEDS ORDERED: Levalbuterol Neb 0.63 MG/3 ML IH ONE (21:08)
[2019-02-22] MEDS: Acetaminophen 325 MG TABLET PO PRN (05:06)
[2019-02-22] MEDS: Ampicillin/Sulbactam 3,000 MG in 0.9 % Sodium Chloride Mini Bag 100 ML IVPB SCH ×4 (05:07→23:15)
[2019-02-22] MEDS: Cyanocobalamin (B-12) 1,000 MCG TABLET PO SCH (09:04)
[2019-02-22] MEDS: 0.9 % Sodium Chloride 1,000 ML IVC SCH ×2 (09:04→17:33)
[2019-02-22 09:08] LABS: Basophils % 0.9 %; Hemoglobin 14.5 g/dL (12.9-16.9)
[2019-02-22 09:10] LABS: Hematocrit 44.1 % (37.5-50.1); Immature Granulocytes % 1.8 % (0-4); Immature Platelets 7.7 % (1.1-6.1); Lymphocytes # 0.3 K/mcL (0.6-4.6); Lymphocytes % 14.4 %; Mean Corpuscular HGB Conc 32.9 g/dL (31.6-35.5); Mean Corpuscular Hemoglobin 31.8 pg (28.0-33.3); Mean Corpuscular Volume 96.7 fL (83.0-100.0); Mean Platelet Volume 12.1 fL (9.4-12.4); Monocytes # 0.1 K/mcL (0.0-1.3); Monocytes % 4.1 %; Neutrophils # 1.7 K/mcL (1.6-8.9); Red Blood Count 4.56 M/mcL (4.19-5.50); Red Cell Distribution Width 13.8 % (11.5-14.5); Segmented Neutrophils % 78.8 %; White Blood Count 2.2 K/mcL (4.3-11.1)
[2019-02-22 09:23] LABS: Platelet Count 30 K/mcL (140-400)
[2019-02-22 09:27] LABS: Alanine Aminotransferase 27 Units/L (7-52); Albumin/Globulin Ratio 1.2 (1.1-2.2); Alkaline Phosphatase 58 Units/L (34-104); Aspartate Amino Transferase 99 Units/L (13-39); BUN/Creatinine Ratio 17 (6-26); Bilirubin,Total 0.9 mg/dL (0.3-1.0); Blood Urea Nitrogen 23 mg/dL (8-23); Calcium 8.1 mg/dL (8.6-10.3); Carbon Dioxide 19 mEq/L (23-29); Chloride 115 mEq/L (98-107); Globulin 2.5 g/dL (2.4-3.5); Glucose 105 mg/dL (70-105); Magnesium 2.2 mg/dL (1.6-2.6); Osmolality,Calculated 302 (280-300); Potassium 3.8 mEq/L (3.5-5.1); Sodium 144 mEq/L (136-145); Total Protein 5.5 g/dL (6.4-8.9); eGFR For African Americans > 60 (> 60); eGFR For Non-African Americans 53 (> 60)
[2019-02-22 10:45] LABS: Platelet Estimate Decreased (Normal)
--- NOTE | 2019-02-22 13:44 | Infectious Disease Progress No ---
ID Progress Note Date of Encounter: 02/22/19 Time of Encounter: 09:25 - Subjective Subjective: Patient seen and examined. No acute events noted overnight. Patient appears more alert and conversant today. Denies pain at this time. Denies fevers, chills, or rigors. Denies chest pain, shortness of breath, or cough. Denies nausea, vomiting, diarrhea, or constipation. Denies abdominal pain or urinary complaints. States his last bowel movement was 3 days ago. Denies oral thrush or skin lesions. Denies pain in his back, joints, or extremities. - Objective CBC & Chem 7: 02/24/19 09:01 02/24/19 09:01 - Exam Vitals: Temp Pulse Resp BP Pulse Ox 98.4 F 100 19 127/90 93 02/22/19 12:04 02/22/19 12:04 02/22/19 12:04 02/22/19 12:04 02/22/19 12:04 Exam: Head: Atraumatic, normal inspection, normocephalic. Eye: EOMI, PERRLA, no scleral icterus noted. ENT: Mucous membranes moist. No odontogenic infection noted. Neck: Normal inspection, no meningismus. Respiratory: Clear to auscultation. No rales, respiratory distress, rhonchi, or wheezes noted. Cardiovascular: Regular rate and rhythm, S1 and S2 audible. No murmurs, rubs, or gallops. GI: Soft, nondistended, normal bowel sounds. Tenderness noted with palpation. Extremities:No joint swelling, pedal edema, or tenderness noted. Left foot and ankle dressing C/D/I. No erythema noted beyond the edges of the dressing. Back: Normal inspection. No vertebral tenderness noted. Neurological: Alert, oriented 2, no focal deficits. Appears somewhat confused. Psychiatric: normal affect, normal mood. Skin: Dry, intact, warm. Normal color. No rashes. - Assessment and Plan (1) Sepsis Current Visit: Yes Status: Acute The patient had 2 sepsis criteria on admission with an acute kidney injury and abnormal liver function tests. Likely secondary to left foot cellulitis. Improved. WBC up a little. Febrile overnight with Tmax 102.9. LFTs and KEMI improved. Blood cultures drawn 02/20/19 are no growth to date 2 sets. Qualifiers: Qualified Code(s): A41.9 - Sepsis, unspecified organism SNOMED Code(s): 81339497 (2) Dog bite Current Visit: Yes Status: Acute Location: Left ankle. The patient states it was his neighbor's dog and he is unsure if the dog was vaccinated. CT of the lower extremity showed subcutaneous edema over the anterior aspect of the distal leg with small amount subcutaneous hemorrhage and small amount of hemorrhage within the anterior compartment musculature, but no radiopaque foreign body or acute osseous abnormality. CRP mildly elevated at 18. CK elevated at 486. The patient states he is up-to-date on his tetanus vaccine, but I am not sure how reliable the history the patient is. Currently on Unasyn. Qualifiers: Qualified Code(s): W54.0XXA - Bitten by dog, initial encounter SNOMED Code(s): 189671371, 937417653 (3) Cellulitis Current Visit: Yes Status: Acute Location: Left foot and ankle. Likely secondary to recent dog bite. CT of the left lower extremity negative for abscess or acute osseous abnormality. CRP mildly elevated at 18. Acute care surgery team consult it. Does not feel that there is any indication for surgical intervention at this time. Currently on Unasyn. Qualifiers: Qualified Code(s): L03.116 - Cellulitis of left lower limb SNOMED Code(s): 125404634 (4) KEMI (acute kidney injury) Current Visit: Yes Status: Acute Etiology: Unclear. Infection versus other. Unsure what the patient's baseline is as he has not had any labs done here prior to this hospitalization. Improved. Consider nephrology to evaluate. Strict I's and O's. Avoid nephrotoxins and dose adjust medications. SNOMED Code(s): 80309841, 37477992 (5) Elevated troponin Current Visit: Yes Status: Acute Etiology: Unclear. The patient denies any chest pain. Further workup and management per the primary team. SNOMED Code(s): 011504385, 223716541, 443667210 (6) Transaminitis Current Visit: Yes Status: Acute Etiology: Unclear. Resolved. Liver ultrasound showed findings consistent with fatty liver disease. The patient states he has a remote history of heavy alcohol use. SNOMED Code(s): 421325612, 043947546 (7) Thrombocytopenia Current Visit: Yes Status: Acute Etiology: Unclear. Infectious versus chronic etiologies. Heme/Onc consulted. SNOMED Code(s): 286649070 (8) Metabolic encephalopathy Current Visit: Yes Status: Acute Patient appears to have AMS. He is A/O x2. Improved. Unsure if this is his baseline. There is no family at the bedside and nursing is not aware. Consider CT of the head. No meningeal signs. SNOMED Code(s): 13408892 - Recommendations Recommendations: Await wound cultures to finalize. Await blood cultures to finalize. Thrombocytopenia/leukopenia workup per the hem/onc team. Wound care per ACS team. Continue Unasyn 3 grams IV 6H. Start Vancomycin IV. Pharmacy to dose. Goal trough ~15. Duration of treatment depends on the clinical picture. Consult Discharge Plan - Plan [facility]errals: [facility] [Primary Care Provider] - - Attending Attestation I have personally performed a face to face evaluation on this patient. I have reviewed and agree with the care plan. History and Exam by me shows: Assessment and plan: 1.Sepsis 2.Dog bite left ankle: CT of the lower extremities shows subcutaneous edema but no radiographic foreign bodies or acute osseous abnormality 3.Cellulitis left foot and ankle 4.Acute kidney injury etiology not clear 5.Transaminitis patient apparently also had history of heavy alcohol use 6.Metabolic encephalopathy Recommendations Discontinue Zosyn Discontinue Flagyl Start Unasyn 3 g IV every 6 hours Once clinically doing better will consider switching to oral antibiotics
--- NOTE | 2019-02-22 14:06 | Internal Med Progress Note ---
Hospitalist Progress Note - Encounter Date of Encounter: 02/22/19 Time of Encounter: 14:06 - Subjective Interval History: Patient was seen and examined at bedside he is alert and oriented to name and place does follow simple commands and sure patient's mental baseline there is no family present at this time - Exam Vitals: Temp Pulse Resp BP Pulse Ox 98.4 F 100 19 127/90 93 02/22/19 12:04 02/22/19 12:04 02/22/19 12:04 02/22/19 12:04 02/22/19 12:04 Exam: GEN: NAD H CVS:RRR. S1, S2, No m/r/g RESP: CTAB ABD: Soft, NT, ND, +BS EXT: No edema, left medial malleolus laceration noted with scattered but no drainage that extends across the medial malleolus horizontally., Other laceration is on the distal leg that is smaller in size with no drainage 2+ DP NEURO: Alert and oriented 2 but otherwise nonfocal, CN II-XII intact, No focal motor or sensory deficits - Assessment and Plan (1) KEMI (acute kidney injury) Current Visit: Yes Status: Acute Assessment and Plan: c/w on IV fluids for now. Unknown baseline. f/u on labs this am. If no significant improvement we will check a renal ultrasound. Possibly dehydration and possibility of sepsis. Avoid nephrotoxins 6/4 Appears to be better today we will continue to monitor and consult nephrology as needed-most likely secondary to dehydration/possibly sepsis (2) Cellulitis Current Visit: Yes Status: Acute Assessment and Plan: c/w Zosyn and Flagyl. ID to see. Discussed CT findings with ACS who will see him. Follow-up on blood cultures. I do not see any drainage from the bites that can be cultured we will get a CT of the ankle. ESR and CRP elevated. Check CPK 6/4 Seen by infectious disease and appreciate recommendations CT of left lower extremity negative for abscess or acute osseous abnormality CRPs are mildly elevated at 18 Acute surgery consult as an do not feel there is any indication for surgical intervention at this time Continue with Unasyn-place on vancomycin Wound care per ACS team Awaiting blood cultures and wound culture (3) Transaminitis Current Visit: Yes Status: Acute Assessment and Plan: Has elevated LFTs possibly due to sepsis. Denies alcohol use. We will check right upper quadrant ultrasound. f/u on labs this am. 02/22 Right upper quadrant ultrasound shows fatty liver-appears to be improving (4) Elevated troponin Current Visit: Yes Status: Acute Assessment and Plan: Likely demand ischemia due infection vs KEMI. trended and remains stable at .06, .07, .07. EKG with nothing acute indicative of ischemia- denies any chest pain (5) Thrombocytopenia Current Visit: Yes Status: Acute Assessment and Plan: Unsure if chronic. Also has leukopenia. I wonder if he has liver issues. Will monitor for now but may end up consulting hematology. RUQ US pending. 02/22 Unsure of chronic also leukopenic right upper quadrant ultrasound does show fatty liver-consult hematology as needed (6) DVT prophylaxis Current Visit: Yes Status: Acute Assessment and Plan: SCDs (7) Metabolic encephalopathy Current Visit: Yes Status: Acute Assessment and Plan: Possibly has some dementia at baseline. TSH, b12, folate, ammonia level normal. More talkative this am but still only A/O x2. 02/22 Alert and oriented 2-makes inappropriate comments and is impulsive and sure of mental baseline we will check CT of head - Time Spent with Patient Total time spent is greater than 50% in coordination of care (as documented) at patient's floor/unit and/or counseling patient: Internal Medicine: Result - Labs CBC & Chem 7: 02/22/19 08:31 02/22/19 08:31 Labs: Short CBC 02/22/19 Range/Units 08:31 WBC 2.2 L (4.3-11.1) K/mcL Hgb 14.5 (12.9-16.9) g/dL Hct 44.1 (37.5-50.1) % Plt Count 30 L* (140-400) K/mcL Neutrophils # 1.7 (1.6-8.9) K/mcL BMP 02/22/19 08:31 Sodium 144 Potassium 3.8 Chloride 115 H Carbon Dioxide 19 L BUN 23 Creatinine 1.34 H Glucose 105 Calcium 8.1 L Liver Function 02/22/19 Range/Units 08:31 Total Bilirubin 0.9 (0.3-1.0) mg/dL AST 99 H (13-39) Units/L ALT 27 (7-52) Units/L Alkaline Phosphatase 58 (34-104) Units/L Albumin 3.0 L (3.5-5.7) g/dL - ABG Interpretation ABG results: PT/INR, D-dimer PT 11.6 Seconds (9.4-12.1) 02/21/19 17:24 Consult Discharge Plan - Plan Referrals: [facility] [Primary Care Provider] - (2) Cellulitis Qualifiers: Site of cellulitis: extremity Site of cellulitis of extremity: lower extremity Laterality: left Qualified Code(s): L03.116 - Cellulitis of left lower limb
--- NOTE | 2019-02-22 18:04 | Oncology Inp Progress Note ---
<Vijaya Brady - Last Filed: 02/22/19 18:02> Date of Encounter: 02/22/19 Time of Encounter: 14:00 (1) Thrombocytopenia Current Visit: Yes Status: Acute Assessment and plan: Possibly from infectious process, left lower extremity skin changes swelling imaging findings once suggestive of local inflammation/infection. CT scan f indings reviewed. On antibiotics Zosyn which could further cause thrombocytopenia, leukopenia. Hemoglobin hematocrit repeated back to normal, less suspicious for hematologic disorder/thrombotic microangiopathy. Fatty liver additional imaging may be necessary at later date to rule out cirrhosis portal hypertension. Plan: Viral hepatitis panel- nonreactive coag panel Peripheral smear by pathology: thrombocytopenia. Unremarkable morphology. B12 deficiency, subcutaneous injection him vs oral supplementation ordered. SPEP ordered. Results awaited. ID recommendations for treatment of cellulitis without osteomyelitis. No debridement planned at this time. Continue to monitor clinically/labs. Oncology: Subj Interval history: Mr. Lemos is sleeping this afternoon. He awakens easily by voice and light touch. He appears confused and disoriented. His speech is mumbled at baseline per nursing staff. He is unable to tell me where he is or his name. He mumbled his month only. Attempted to discuss platelet count, but patient unable to understand information. No family at bedside. - Constitutional General appearance: cooperative, disheveled, no acute distress - Extremities Exam Extremities exam: Present: normal inspection. Absent: tenderness - Neurological Exam Neurological exam: Present: altered, speech deficit - Psychiatric Psychiatric exam: Present: normal affect, normal mood - Skin Skin exam: Present: dry, warm Oncology: Obj Data - Labs CBC & Chem 7: 02/22/19 08:31 02/22/19 08:31 Consult Discharge Plan - Plan [facility]errals: [facility] [Primary Care Provider] - Inpatient Charges Provider: Dr. Marco Lopez <Burt Lopez - Last Filed: 02/23/19 08:47> Date of Encounter: 02/23/19 (1) Thrombocytopenia Current Visit: Yes Status: Acute Assessment and plan: Lab data reviewed, patient seen bedside. I examined this patient and my medical decision-making was reviewed with the Advanced Practice Nurse, Vijaya Brady. I agree with the documented findings, disposition and treatment plan as described except to the extent set forth below. Oncology: Obj Data - Labs CBC & Chem 7: 02/23/19 07:11 02/23/19 07:11 Inpatient Charges Provider: Dr. Marco Lopez Follow up - Inpatient: [id number]
[2019-02-23] MEDS: 0.9 % Sodium Chloride 1,000 ML IVC SCH ×3 (02:28→18:19)
[2019-02-23] MEDS: Acetaminophen 325 MG TABLET PO PRN (02:28)
[2019-02-23] MEDS: Ampicillin/Sulbactam 3,000 MG in 0.9 % Sodium Chloride Mini Bag 100 ML IVPB SCH ×3 (05:42→18:15)
[2019-02-23 07:28] LABS: Mean Corpuscular HGB Conc 33.1 g/dL (31.6-35.5)
[2019-02-23 07:30] LABS: Basophils % 1.5 %; Hematocrit 42.6 % (37.5-50.1); Hemoglobin 14.1 g/dL (12.9-16.9); Immature Granulocytes % 2.5 % (0-4); Immature Platelets 7.8 % (1.1-6.1); Lymphocytes # 0.5 K/mcL (0.6-4.6); Lymphocytes % 17.8 %; Mean Corpuscular Hemoglobin 31.7 pg (28.0-33.3); Mean Corpuscular Volume 95.7 fL (83.0-100.0); Mean Platelet Volume 11.8 fL (9.4-12.4); Monocytes # 0.1 K/mcL (0.0-1.3); Monocytes % 2.9 %; Neutrophils # 2.1 K/mcL (1.6-8.9); Red Blood Count 4.45 M/mcL (4.19-5.50); Red Cell Distribution Width 13.6 % (11.5-14.5); Segmented Neutrophils % 75.3 %; White Blood Count 2.8 K/mcL (4.3-11.1)
[2019-02-23 07:33] LABS: Platelet Count 35 K/mcL (140-400)
[2019-02-23 07:46] LABS: Alanine Aminotransferase 25 Units/L (7-52); Albumin 2.8 g/dL (3.5-5.7); Albumin/Globulin Ratio 1.2 (1.1-2.2); Alkaline Phosphatase 65 Units/L (34-104); Aspartate Amino Transferase 102 Units/L (13-39); BUN/Creatinine Ratio 14 (6-26); Bilirubin,Direct 0.4 mg/dL (0.0-0.2); Bilirubin,Indirect 0.4 mg/dL (0.0-1.2); Bilirubin,Total 0.8 mg/dL (0.3-1.0); Blood Urea Nitrogen 20 mg/dL (8-23); Calcium 7.8 mg/dL (8.6-10.3); Carbon Dioxide 21 mEq/L (23-29); Chloride 117 mEq/L (98-107); Globulin 2.3 g/dL (2.4-3.5); Glucose 108 mg/dL (70-105); Osmolality,Calculated 309 (280-300); Potassium 3.7 mEq/L (3.5-5.1); Sodium 148 mEq/L (136-145); Total Protein 5.1 g/dL (6.4-8.9); eGFR For African Americans > 60 (> 60); eGFR For Non-African Americans 50 (> 60)
--- NOTE | 2019-02-23 09:13 | Event Note ---
Date of Encounter: 02/23/19 Time of Encounter: 10:00 This is 73 years old male presented with dog bite to his left ankle several days prior to admission to the hospital. He has had painful area of cellulitis involving the left ankle extending on the dorsum of the left foot. The CAT scan of the left lower extremity demonstrated some subfascial bleeding and inflammation, however, there was no subcutaneous air or fascia air.There is no evidence of deep abscess or necrosis. There are open wounds one on the lateral aspect of the ankle just above the lateral malleolus and one on the medial ankle just below and posterior to the medial malleolus and draining purulent material. This appears to have a polymicrobial soft tissue infection secondary to dog bite. Plan : Continue broad-spectrum antibiotics : Wound care and Dressing changes with calcium alginate with silver. : Follow-up in outpatient surgery in 2 weeks. : We will sign off, we will be happy to review as needed. .
[2019-02-23] MEDS: Cyanocobalamin (B-12) 1,000 MCG TABLET PO SCH (09:21)
--- NOTE | 2019-02-23 09:23 | Internal Med Progress Note ---
Hospitalist Progress Note - Encounter Date of Encounter: 02/23/19 Time of Encounter: 09:00 - Subjective Interval History: No acute events overnight. - Exam Vitals: Temp Pulse Resp BP Pulse Ox 98.8 F 88 18 162/95 93 02/23/19 07:42 02/23/19 07:42 02/23/19 07:42 02/23/19 07:42 02/23/19 07:42 Exam: GEN: NAD H CVS:RRR. S1, S2, No m/r/g RESP: CTAB ABD: Soft, NT, ND, +BS EXT: No edema, left medial malleolus laceration noted with scattered but no drainage that extends across the medial malleolus horizontally., Other laceration is on the distal leg that is smaller in size with no drainage 2+ DP NEURO: Alert and oriented 2 but otherwise nonfocal, CN II-XII intact, No focal motor or sensory deficits - Assessment and Plan (1) Cellulitis Current Visit: Yes Status: Acute Assessment and Plan: On vanc and unasyn. ID following Will obtain MRI left foot to r/o osteomyelitis due to temp spikes Follow up blood cultures. Obtain chest xray to r/o pneumonia (2) KEMI (acute kidney injury) Current Visit: Yes Status: Acute Assessment and Plan: Likely prerenal. Continue IV fluids (3) Transaminitis Current Visit: Yes Status: Acute Assessment and Plan: Has elevated LFTs possibly due to sepsis. Denies alcohol use. We will check right upper quadrant ultrasound. f/u on labs this am. 02/22 Right upper quadrant ultrasound shows fatty liver-appears to be improving (4) Elevated troponin Current Visit: Yes Status: Acute Assessment and Plan: Likely demand ischemia due infection vs KEMI. trended and remains stable at .06, .07, .07. EKG with nothing acute indicative of ischemia- denies any chest pain (5) Thrombocytopenia Current Visit: Yes Status: Acute Assessment and Plan: Unsure if chronic. Also has leukopenia. I wonder if he has liver issues. Will monitor for now but may end up consulting hematology. RUQ US pending. 02/22 Unsure of chronic also leukopenic right upper quadrant ultrasound does show fatty liver-consult hematology as needed (6) Metabolic encephalopathy Current Visit: Yes Status: Acute Assessment and Plan: Possibly has some dementia at baseline. TSH, b12, folate, ammonia level normal. More talkative this am but still only A/O x2. 6/5 Alert and oriented 2-makes inappropriate comments and is impulsive. CT head shows no acute abnormality (7) DVT prophylaxis Current Visit: Yes Status: Acute Assessment and Plan: SCDs - Time Spent with Patient Total time spent is greater than 50% in coordination of care (as documented) at patient's floor/unit and/or counseling patient: Internal Medicine: Result - Labs CBC & Chem 7: 02/23/19 07:11 02/23/19 07:11 Labs: Short CBC 02/22/19 02/23/19 Range/Units 08:31 07:11 WBC 2.2 L 2.8 L (4.3-11.1) K/mcL Hgb 14.5 14.1 (12.9-16.9) g/dL Hct 44.1 42.6 (37.5-50.1) % Plt Count 30 L* 35 L (140-400) K/mcL Neutrophils # 1.7 2.1 (1.6-8.9) K/mcL BMP 02/22/19 02/23/19 08:31 07:11 Sodium 144 148 H Potassium 3.8 3.7 Chloride 115 H 117 H Carbon Dioxide 19 L 21 L BUN 23 20 Creatinine 1.34 H 1.39 H Glucose 105 108 H Calcium 8.1 L 7.8 L Cardiac Enzymes 02/22/19 Range/Units 14:10 Troponin I 0.04 H* (< 0.04) ng/mL Liver Function 02/22/19 02/23/19 Range/Units 08:31 07:11 Total Bilirubin 0.9 0.8 (0.3-1.0) mg/dL Direct Bilirubin 0.4 H (0.0-0.2) mg/dL AST 99 H 102 H (13-39) Units/L ALT 27 25 (7-52) Units/L Alkaline Phosphatase 58 65 (34-104) Units/L Albumin 3.0 L 2.8 L (3.5-5.7) g/dL - ABG Interpretation ABG results: PT/INR, D-dimer PT 11.6 Seconds (9.4-12.1) 02/21/19 17:24 - Impressions Impressions Head CT 02/22/19 21:20 IMPRESSION: Mild small vessel ischemic change bilaterally Age-indeterminate ischemic change in the anterior left lentiform nucleus region. No acute abnormality otherwise D/ / Fer Keyes / Fer Keyes Interpreting Provider: Fer Keyes Consult Discharge Plan - Plan [facility]errals: [facility] [Primary Care Provider] - (1) Cellulitis Qualifiers: Site of cellulitis: extremity Site of cellulitis of extremity: lower extremity Laterality: left Qualified Code(s): L03.116 - Cellulitis of left lower limb
[2019-02-23] MEDS: Propranolol LA (24 HR) 60 MG CAP.SA.24H PO SCH (10:27)
--- NOTE | 2019-02-23 10:33 | Infectious Disease Progress No ---
ID Progress Note Date of Encounter: 02/23/19 Time of Encounter: 09:40 - Subjective Subjective: Patient seen and examined. No acute events noted overnight. Patient appears more alert and conversant today, but still intermittently confused. Denies pain at this time. Denies fevers, chills, or rigors. Denies chest pain, shortness of breath, or cough. Denies nausea, vomiting, diarrhea, or constipation. Denies abdominal pain or urinary complaints. Unsure when his last BM was. Denies oral thrush or skin lesions. Denies pain in his back, joints, or extremities. - Objective CBC & Chem 7: 02/24/19 09:01 02/24/19 09:01 - Exam Vitals: Temp Pulse Resp BP Pulse Ox 98.8 F 88 18 162/95 93 02/23/19 07:42 02/23/19 07:42 02/23/19 07:42 02/23/19 07:42 02/23/19 09:25 Exam: Head: Atraumatic, normal inspection, normocephalic. Eye: EOMI, PERRLA, no scleral icterus noted. ENT: Mucous membranes moist. No odontogenic infection noted. Neck: Normal inspection, no meningismus. Respiratory: Clear to auscultation. No rales, respiratory distress, rhonchi, or wheezes noted. Cardiovascular: Regular rate and rhythm, S1 and S2 audible. No murmurs, rubs, or gallops. GI: Soft, nondistended, normal bowel sounds. Tenderness noted with palpation. Extremities:No joint swelling, pedal edema, or tenderness noted. Scabbed lesion noted to the anterior aspect of the left ankle with some mild surrounding erythema. No purulent drainage. Ecchymosis noted to the anterior and lateral aspect of the left foot and ankle. Additional scabbed lesion noted to the medial aspect of the left ankle with some mild erythema noted. No purulent drainage. No fluctuance. Tenderness noted with palpation. Pain with range of motion. Neurological: Alert, oriented 2, no focal deficits. Appears somewhat confused. Psychiatric: normal affect, normal mood. Skin: Dry, intact, warm. Normal color. No rashes. - Assessment and Plan (1) Sepsis Current Visit: Yes Status: Acute The patient had 2 sepsis criteria on admission with an acute kidney injury and abnormal liver function tests. Likely secondary to left foot cellulitis. Improved. WBC up a little. Febrile overnight with Tmax 102.1. LFTs and KEMI improved. Blood cultures drawn 02/20/19 are no growth to date 2 sets. Qualifiers: Sepsis type: sepsis due to unspecified organism Qualified Code(s): A41.9 - Sepsis, unspecified organism SNOMED Code(s): 55348575 (2) Dog bite Current Visit: Yes Status: Acute Location: Left ankle. The patient states it was his neighbor's dog and he is unsure if the dog was vaccinated. CT of the lower extremity showed subcutaneous edema over the anterior aspect of the distal leg with small amount subcutaneous hemorrhage and small amount of hemorrhage within the anterior compartment musculature, but no radiopaque foreign body or acute osseous abnormality. CRP mildly elevated at 18. CK elevated at 486. The patient states he is up-to-date on his tetanus vaccine, but I am not sure how reliable the history the patient is. Clinically, the foot appears unchanged other than some ecchymosis, but concerned that the patient is still having fevers despite broad-spectrum antibiotic coverage. Currently on Unasyn and Vancomycin. Qualifiers: Encounter type: initial encounter Qualified Code(s): W54.0XXA - Bitten by dog, initial encounter SNOMED Code(s): 515557647, 869775906 (3) Cellulitis Current Visit: Yes Status: Acute Location: Left foot and ankle. Likely secondary to recent dog bite. CT of the left lower extremity negative for abscess or acute osseous abnormality. CRP mildly elevated at 18. Acute care surgery team consulted. Does not feel that there is any indication for surgical intervention at this time. Clinically improved. Currently on Unasyn and Vancomycin. Qualifiers: Site of cellulitis: extremity Site of cellulitis of extremity: lower extremity Laterality: left Qualified Code(s): L03.116 - Cellulitis of left lower limb SNOMED Code(s): 957960818 (4) KEMI (acute kidney injury) Current Visit: Yes Status: Acute Etiology: Unclear. Infection versus other. Unsure what the patient's baseline is as he has not had any labs done here prior to this hospitalization. Improved. Consider nephrology to evaluate. Strict I's and O's. Avoid nephrotoxins and dose adjust medications. SNOMED Code(s): 57066488, 59217644 (5) Elevated troponin Current Visit: Yes Status: Acute Etiology: Unclear. The patient denies any chest pain. Further workup and management per the primary team. SNOMED Code(s): 423229399, 179107431, 846863661 (6) Transaminitis Current Visit: Yes Status: Acute Etiology: Unclear. Resolved. Liver ultrasound showed findings consistent with fatty liver disease. The patient states he has a remote history of heavy alcohol use. SNOMED Code(s): 468770194, 694871863 (7) Thrombocytopenia Current Visit: Yes Status: Acute Etiology: Unclear. Infectious versus chronic etiologies. Heme/Onc consulted. SNOMED Code(s): 072480945 (8) Metabolic encephalopathy Current Visit: Yes Status: Acute Patient appears to have AMS. He is A/O x2. Improved. Unsure if this is his baseline. There is no family at the bedside and nursing is not aware. CT head shows age-indeterminant ischemic changes to the anterior left lentiform nucleus. No acute changes noted. No meningeal signs. SNOMED Code(s): 49201031 - Recommendations Recommendations: Repeat blood cultures x 2 sets now. Repeat ESR, CRP, and CK level. Await wound cultures to finalize. Await blood cultures to finalize. Thrombocytopenia/leukopenia workup per the hem/onc team. Wound care per ACS team. Consider MRI to the left foot/ankle. Continue Unasyn 3 grams IV 6H. Continue Vancomycin IV. Pharmacy to dose. Goal trough ~15. Duration of treatment depends on the clinical picture. Consult Discharge Plan - Plan [facility]errals: [facility] [Primary Care Provider] - - Attending Attestation I have personally performed a face to face evaluation on this patient. I have reviewed and agree with the care plan. History and Exam by me shows: Assessment and plan: 1.Sepsis 2.Dog bite left ankle: CT of the lower extremities shows subcutaneous edema but no radiographic foreign bodies or acute osseous abnormality 3.Cellulitis left foot and ankle 4.Acute kidney injury etiology not clear 5.Transaminitis patient apparently also had history of heavy alcohol use 6.Metabolic encephalopathy Recommendations Repeat blood cultures x 2 sets now. Repeat ESR, CRP, and CK level. Await wound cultures to finalize. Await blood cultures to finalize. Thrombocytopenia/leukopenia workup per the hem/onc team. Wound care per ACS team. Consider MRI to the left foot/ankle. Continue Unasyn 3 grams IV 6H. Continue Vancomycin IV. Pharmacy to dose. Goal trough ~15. Duration of treatment depends on the clinical picture.
[2019-02-23 11:38] LABS: C-Reactive Protein 93 mg/L (Less than 10); Creatine Kinase 221 Units/L (30-223)
[2019-02-23 11:51] LABS: Bilirubin,Urine Negative (Negative); Blood,Urine Small (Negative); Clarity,Urine Cloudy (Clear); Color,Urine Yellow (Yellow); Glucose,Urine (UA) Normal (Normal); Ketones,Urine 15 mg/dL (Negative); Leukocyte Esterase,Urine Negative (Negative); Nitrite,Urine Negative (Negative); Protein,Urine 100 mg/dL (Neg-Trace); Specific Gravity,Urine 1.019 (1.010-1.025)
[2019-02-23 11:53] LABS: Bacteria,Urine None Seen per hpf (None-Few); Hyaline Casts,Urine Few per lpf (None-Few); Squamous Epithelial Cell,Urine Many per lpf (None-Few); WBC,Urine 15-30 per hpf (0-3)
--- NOTE | 2019-02-23 13:43 | Oncology Inp Progress Note ---
Date of Encounter: 02/23/19 Time of Encounter: 08:00 (1) Thrombocytopenia Current Visit: Yes Status: Acute Assessment and plan: Thrombocytopenia without any anemia, low blood cell count, prior lab works reviewed the per discussion chronic thrombus cytopenia possible immune etiology versus sequestration. Antibiotics change, currently on Unasyn and vancomycin white blood cell count platelets stable he is not clinically bleeding. Mentation at baseline per family and records. Peripheral smear does not show any evidence of hemolysis platelet counts overall decreased. Oncology: Subj Interval history: PAtient seen examined. He is not oriented to answer qus appropriately - Constitutional General appearance: no acute distress - Head Head exam: Present: atraumatic, normal inspection - Neck Additional comments: no palpable lumps - Respiratory Respiratory exam: Present: CTAB - GI/Abdominal GI/Abdominal exam: Present: normal bowel sounds, soft - Extremities Exam Additional comments: left lower ext wound n dressing Oncology: Obj Data - Labs CBC & Chem 7: 02/23/19 07:11 02/23/19 07:11 Consult Discharge Plan - Plan [facility]errals[facility] [Primary Care Provider] - Inpatient Charges Provider: Dr. Marco Lopez Follow up - Inpatient: [id number]
[2019-02-24] MEDS: Ampicillin/Sulbactam 3,000 MG in 0.9 % Sodium Chloride Mini Bag 100 ML IVPB SCH ×5 (00:02→23:28)
[2019-02-24] MEDS: 0.9 % Sodium Chloride 1,000 ML IVC SCH (05:08)
[2019-02-24 08:40] LABS: Alpha 2 Globulin (PEP) 0.96 g/dL (0.48-1.05); Beta Globulin (PEP) 0.85 g/dL (0.48-1.10)
--- NOTE | 2019-02-24 08:42 | Internal Med Progress Note ---
Hospitalist Progress Note - Encounter Date of Encounter: 02/24/19 Time of Encounter: 08:30 - Subjective Interval History: No acute events overnight. Patient still has some confusion this am - Exam Vitals: Temp Pulse Resp BP Pulse Ox 98.6 F 87 24 156/85 90 02/24/19 07:09 02/24/19 07:09 02/24/19 07:09 02/24/19 07:09 02/24/19 07:09 Exam: GEN: NAD CVS:RRR. S1, S2, No m/r/g RESP: CTAB ABD: Soft, NT, ND, +BS EXT: No edema, left medial malleolus laceration noted with scattered but no drainage that extends across the medial malleolus horizontally., Other laceration is on the distal leg that is smaller in size with no drainage 2+ DP NEURO: Alert and oriented 2 but otherwise nonfocal, CN II-XII intact, No focal motor or sensory deficits - Assessment and Plan (1) Metabolic encephalopathy Current Visit: Yes Status: Acute Assessment and Plan: Possibly has some dementia at baseline but per family has apparently been more confused than usual CT head negative for any acute abnormalities. MRI head ordered, neuro consulted and recs apppreciated Considering rabies as a possibility for unresolving confusion, but patient does not have the classic signs of rabies Discussed with ID, will review guidelines for window for administering rabies vaccine/ immunoglobulin Will attempt to track down dog for observation for rabies (2) Cellulitis Current Visit: Yes Status: Acute Assessment and Plan: On vanc and unasyn. ID following Will obtain MRI left foot to r/o osteomyelitis due to temp spikes Follow up blood cultures. Chest xray for pneumonia came back negative Podiatry consulted for foot cellulitis and recs appreciated (3) KEMI (acute kidney injury) Current Visit: Yes Status: Acute Assessment and Plan: Likely prerenal. Continue IV fluids (4) Transaminitis Current Visit: Yes Status: Acute Assessment and Plan: Has elevated LFTs possibly due to sepsis. Denies alcohol use. We will check right upper quadrant ultrasound. f/u on labs this am. 6/4 Right upper quadrant ultrasound shows fatty liver-appears to be improving (5) Elevated troponin Current Visit: Yes Status: Acute Assessment and Plan: Likely demand ischemia due infection vs KEMI. trended and remains stable at .06, .07, .07. EKG with nothing acute indicative of ischemia- denies any chest pain (6) Thrombocytopenia Current Visit: Yes Status: Acute Assessment and Plan: Unsure if chronic. Also has leukopenia. I wonder if he has liver issues. Will monitor for now but may end up consulting hematology. RUQ US pending. 02/22 Unsure of chronic also leukopenic right upper quadrant ultrasound does show fatty liver-consult hematology as needed (7) DVT prophylaxis Current Visit: Yes Status: Acute Assessment and Plan: SCDs - Time Spent with Patient Total time spent is greater than 50% in coordination of care (as documented) at patient's floor/unit and/or counseling patient: Internal Medicine: Result - Labs CBC & Chem 7: 02/24/19 09:01 02/24/19 09:01 Labs: Urine 02/23/19 Range/Units 11:40 Urine Color Yellow (Yellow) Urine Clarity Cloudy A (Clear) Urine pH 6.0 (5.0-8.0) pH Units Ur Specific [place] 1.019 (1.010-1.025) Urine Protein 100 H (Neg-Trace) mg/dL Urine Glucose (UA) Normal (Normal) mg/dL - ABG Interpretation ABG results: PT/INR, D-dimer PT 11.6 Seconds (9.4-12.1) 02/21/19 17:24 - Impressions Impressions Foot MRI 02/23/19 13:57 IMPRESSION: 1. No osteomyelitis or other acute osseous abnormality. 2. Subcutaneous edema compatible with cellulitis. No drainable fluid collection. 3. Mild edema within the anterior compartment musculature compatible with myositis versus contusion. Small focus of heterogeneous signal in the extensor digitorum longus muscle likely representing hemorrhage. D/ / Yung Servin MD / Yung Servin MD Interpreting Provider: Yung Servin MD Chest X-Ray 02/23/19 16:41 IMPRESSION: No radiographic evidence of acute cardiopulmonary disease. D/ / Prasad Palomino / Prasad Palomino Interpreting Provider: Prasad Palomino Consult Discharge Plan - Plan [facility]errals: [facility] [Primary Care Provider] - (2) Cellulitis Qualifiers: Site of cellulitis: extremity Site of cellulitis of extremity: lower extremity Laterality: left Qualified Code(s): L03.116 - Cellulitis of left lower limb
[2019-02-24 09:27] LABS: Hemoglobin 14.5 g/dL (12.9-16.9)
[2019-02-24 09:29] LABS: Basophils % 1.1 %; Eosinophils % 0.3 %; Hematocrit 44.2 % (37.5-50.1); Immature Granulocytes % 3.2 % (0-4); Immature Platelets 7.9 % (1.1-6.1); Lymphocytes # 0.8 K/mcL (0.6-4.6); Lymphocytes % 20.2 %; Mean Corpuscular HGB Conc 32.8 g/dL (31.6-35.5); Mean Corpuscular Hemoglobin 31.9 pg (28.0-33.3); Mean Corpuscular Volume 97.4 fL (83.0-100.0); Mean Platelet Volume 11.8 fL (9.4-12.4); Monocytes # 0.2 K/mcL (0.0-1.3); Neutrophils # 2.7 K/mcL (1.6-8.9); Red Blood Count 4.54 M/mcL (4.19-5.50); Red Cell Distribution Width 13.7 % (11.5-14.5); Segmented Neutrophils % 71.2 %; White Blood Count 3.8 K/mcL (4.3-11.1)
[2019-02-24 09:46] LABS: BUN/Creatinine Ratio 18 (6-26); Blood Urea Nitrogen 23 mg/dL (8-23); Calcium 7.9 mg/dL (8.6-10.3); Carbon Dioxide 20 mEq/L (23-29); Chloride 121 mEq/L (98-107); Glucose 123 mg/dL (70-105); Osmolality,Calculated 315 (280-300); Potassium 3.5 mEq/L (3.5-5.1); Sodium 150 mEq/L (136-145); eGFR For African Americans > 60 (> 60); eGFR For Non-African Americans 57 (> 60)
[2019-02-24] MEDS: Cyanocobalamin (B-12) 1,000 MCG TABLET PO SCH (09:54)
[2019-02-24] MEDS: Propranolol LA (24 HR) 60 MG CAP.SA.24H PO SCH (09:55)
[2019-02-24 09:59] LABS: Platelet Count 59 K/mcL (140-400)
--- NOTE | 2019-02-24 10:37 | Infectious Disease Progress No ---
ID Progress Note Date of Encounter: 02/24/19 Time of Encounter: 09:10 - Subjective Subjective: Patient seen and examined. No acute events noted overnight. Patient appears more alert and conversant today, but still intermittently confused and difficult to understand. Per nursing who spoke with patient's family, the patient is usually alert and oriented and continent of bowel and bladder. Denies pain at this time. Denies fevers, chills, or rigors. Denies chest pain, shortness of breath, or cough. Denies nausea, vomiting, diarrhea, or constipation. Denies abdominal pain or urinary complaints. States last BM was last night. Denies oral thrush or skin lesions. Denies pain in his back, joints, or extremities. - Objective CBC & Chem 7: 02/25/19 03:27 02/25/19 03:27 - Exam Vitals: Temp Pulse Resp BP Pulse Ox 98.6 F 87 24 156/85 90 02/24/19 07:09 02/24/19 07:09 02/24/19 07:02/24/19 07:09 02/24/19 09:26 Exam: Head: Atraumatic, normal inspection, normocephalic. Eye: EOMI, PERRLA, no scleral icterus noted. ENT: Mucous membranes moist. No odontogenic infection noted. Neck: Normal inspection, no meningismus. Respiratory: Clear to auscultation. No rales, respiratory distress, rhonchi, or wheezes noted. Cardiovascular: Regular rate and rhythm, S1 and S2 audible. No murmurs, rubs, or gallops. GI: Soft, nondistended, normal bowel sounds. Tenderness noted with palpation. Extremities:No joint swelling, pedal edema, or tenderness noted. Scabbed lesion noted to the anterior aspect of the left ankle with some mild surrounding erythema. No purulent drainage. Left ankle dressing C/D/I. No erythema extending above or below the dressing. Non-tender. Pain with ROM of the ankle. Neurological: Alert, oriented 2, no focal deficits. Appears somewhat confused. Psychiatric: normal affect, normal mood. Skin: Dry, intact, warm. Normal color. No rashes. - Assessment and Plan (1) Sepsis Current Visit: Yes Status: Acute The patient had 2 sepsis criteria on admission with an acute kidney injury and abnormal liver function tests. Likely secondary to left foot cellulitis. No labs checked today. Afebrile overnight. Still intermittently tachycardic. Blood cultures drawn 02/20/19 are no growth to date 2 sets. Repeat blood cultures drawn 02/23/19 are pending x 2 sets. Concern for additional source given the recurrence of fevers and lack of im provement in the patient's mental status despite broad-spectrum antibiotics and the leg is not that impressive. Qualifiers: Sepsis type: sepsis due to unspecified organism Qualified Code(s): A41.9 - Sepsis, unspecified organism SNOMED Code(s): 25754186 (2) Dog bite Current Visit: Yes Status: Acute Location: Left ankle. The patient states it was his neighbor's dog and he is unsure if the dog was vaccinated. CT of the lower extremity showed subcutaneous edema over the anterior aspect of the distal leg with small amount subcutaneous hemorrhage and small amount of hemorrhage within the anterior compartment musculature, but no radiopaque fo reign body or acute osseous abnormality. CRP mildly elevated at 18. CK elevated at 486. The patient states he is up-to-date on his tetanus vaccine, but I am not sure how reliable the history the patient is. Clinically, the foot appears unchanged other than some ecchymosis, but concerned that the patient is still having fevers despite broad-spectrum antibiotic coverage. MRI of the left foot showed no osteomyelitis or other acute osseous abnormality. There is subcutaneous edema compatible with cellulitis, but no drainable fluid collection. There is mild edema within the anterior compartment musculature compatible with myositis versus contusion. A small focus of heterogenous signal in the extensor digitorum longus muscle likely representing hemorrhage. Currently on Unasyn and Vancomycin. Qualifiers: Encounter type: initial encounter Qualified Code(s): W54.0XXA - Bitten by dog, initial encounter SNOMED Code(s): 015011869, 899490528 (3) Cellulitis Current Visit: Yes Status: Acute Location: Left foot and ankle. Likely secondary to recent dog bite. CT of the left lower extremity negative for abscess or acute osseous abnormality. CRP mildly elevated at 18. Acute care surgery team consulted. Does not feel that there is any indication for surgical intervention at this time. Clinically improved. Currently on Unasyn and Vancomycin. Qualifiers: Site of cellulitis: extremity Site of cellulitis of extremity: lower extremity Laterality: left Qualified Code(s): L03.116 - Cellulitis of left lower limb SNOMED Code(s): 123972645 (4) KEMI (acute kidney injury) Current Visit: Yes Status: Acute Etiology: Unclear. Infection versus other. Unsure what the patient's baseline is as he has not had any labs done here prior to this hospitalization. Improved. No labs checked today. Consider nephrology to evaluate. Strict I's and O's. Avoid nephrotoxins and dose adjust medications. SNOMED Code(s): 69163412, 26783152 (5) Elevated troponin Current Visit: Yes Status: Acute Etiology: Unclear. The patient denies any chest pain. Further workup and management per the primary team. SNOMED Code(s): 987814568, 215439496, 046629989 (6) Transaminitis Current Visit: Yes Status: Acute Etiology: Unclear. Resolved. Liver ultrasound showed findings consistent with fatty liver disease. The patient states he has a remote history of heavy alcohol use. SNOMED Code(s): 402910033, 423437513 (7) Thrombocytopenia Current Visit: Yes Status: Acute Etiology: Unclear. Infectious versus chronic etiologies. No labs checked today. Heme/Onc consulted. SNOMED Code(s): 602214162 (8) Metabolic encephalopathy Current Visit: Yes Status: Acute Patient appears to have AMS. He is A/O x2. Etiology unclear. Improved. Nursing states family reports patient is alert, oriented x3 and completely independent normally. CT head shows age-indeterminant ischemic changes to the anterior left lentiform nucleus. No acute changes noted. No meningeal signs. Ammonia level normal on admission. SNOMED Code(s): 28712108 - Recommendations Recommendations: Get CBC and BMP. Await repeat blood cultures. Await wound cultures to finalize. Await blood cultures to finalize. Thrombocytopenia/leukopenia workup per the hem/onc team. Wound care per ACS team. Consider Podiatry to evaluate. Consider Neurology to evaluate. Continue Unasyn 3 grams IV Q6H. Continue Vancomycin IV. Pharmacy to dose. Goal trough ~15. Duration of treatment depends on the clinical picture. Consult Discharge Plan - Plan [facility]errals: [facility] [Primary Care Provider] - - Attending Attestation I have personally performed a face to face evaluation on this patient. I have reviewed and agree with the care plan. History and Exam by me shows: Assessment and plan: 1.Sepsis 2.Dog bite left ankle: CT of the lower extremities shows subcutaneous edema but no radiographic foreign bodies or acute osseous abnormality 3.Cellulitis left foot and ankle 4.Acute kidney injury etiology not clear 5.Transaminitis patient apparently also had history of heavy alcohol use 6.Metabolic encephalopathy Recommendations Get CBC and BMP. Await repeat blood cultures. Await wound cultures to finalize. Await blood cultures to finalize. Thrombocytopenia/leukopenia workup per the hem/onc team. Wound care per ACS team. Consider Podiatry to evaluate. Consider Neurology to evaluate. Continue Unasyn 3 grams IV Q6H. Continue Vancomycin IV. Pharmacy to dose. Goal trough ~15. Duration of treatment depends on the clinical picture.
[2019-02-24 10:40] LABS: Platelet Estimate Decreased (Normal)
[2019-02-24 10:41] LABS: Anisocytosis 1+ (Not Present)
[2019-02-24 12:51] LABS: IFE Reflexed NOT DONE
--- NOTE | 2019-02-24 13:56 | Podiatry Consult Note ---
Date of Encounter: 02/24/19 Time of Encounter: 13:54 Assessment and Plan (1) Dog bite Current visit: Yes Status: Acute Assessment: Contusion noted to left medial malleolus measuring 4.5 cm x 1.2 cm x 0.3 cm. Proximal aspect of contusion with eschar noted. Left distal tibia with 1 x 1 x 0.3 cm wound with small opening noted, eschar noted to wound bed. Tunneling noted. 3 cm at 5 o'clock, 3.3 cm at 7 o'clock, undermining noted from 9 to 12. Sanguinous drainage noted. No foul odor, no purulent drainage noted. Periwound area erythematous. No edema noted. No cellulitis, no lymphangitis noted MRI, CT, and XR negative for acute osseus abnormality MRI showed mysoitis vs contusion with probable hemmorrhage in the extensor digitorum longus muscle WBC 3.8, ESR 25, CRP 18, afebrile, no clinical signs of infection noted Blood culture x 2, wound culture, and anaerobic culture negative Plan: Cleansed wounds with 0.9 NS Packed distal tibial wound with mesalt, placed nadeen dressing. Do not change for 7 days Placed maxorb AG to left medial mal Covered with 4x4 dry gauze, kerlix, and medipore tape Continue ATB per ID recommendations Will continue to follow, thank you for consultation Impression: CT/CT LE LT wo con IMPRESSION: 1. Subcutaneous edema over the anterior aspect of the distal leg with small amount of subcutaneous hemorrhage and small amount of hemorrhage within the anterior compartment musculature. No radiopaque foreign body. 2. No acute osseous abnormality. D/ / Yung Servin MD / Yung Servin MD XR/XR tibia fibula LT IMPRESSION: No acute bony abnormality. D/ / Jennie Ramirez Cha, MD / Jennie Ramirez Cha, MD MR/MR foot LT wo con IMPRESSION: 1. No osteomyelitis or other acute osseous abnormality. 2. Subcutaneous edema compatible with cellulitis. No drainable fluid collection. 3. Mild edema within the anterior compartment musculature compatible with myositis versus contusion. Small focus of heterogeneous signal in the extensor digitorum longus muscle likely representing hemorrhage. D/ / Yung Servin MD / Yung Servin MD Qualifiers: Encounter type: initial encounter Qualified Code(s): W54.0XXA - Bitten by dog, initial encounter History of Present Illness HPI: Mr. Lemos is a 73 year old male who presented on 02/20/19 with a dog bite. Patient was consulted to podiatry on 02/24/19 for evaluation and wound management. PMH of cardiomyopathy. Patient is a poor historian, speech is abnormal, but patient is able to answer appropriately to some questions. No family present at bedside. Briefly, exam is limited due to patient's mentation, patient reports dog bite 10 days ago, denies any erythema, lymphangitis, cellulitis. She was unable to give any other details regarding hospital stay or incident. Per the chart, patient was afebrile upon admission. Patient did have altered mental status and family states is not normal for patient. CT and x-ray were completed of the left lower extremity, no signs of osseous abnormality noted, small subcutaneous hemorrhage noted along the distal leg and within the anterior compartment musculature. ESR 25, CRP 18, leukopenia noted. Infectious disease and Hem/Onc have been consulted and are following. Again Mr. Lemos is a 73-year-old male who was consulted to podiatry for evaluation of left lower extremity wounds. White blood count 3.8 today, afebrile. Altered mental status. Blood cultures negative, wound cultures negative, anaerobic cultures negative. MRI completed on 02/23/19 negative for osteomyelitis, myositis versus contusion, with possible hemorrhage noted in the extensor digitorum longus muscle. Patient denies any fevers. Speech is flight and patient is unable to answer rest of examination questions. Past Med Surg Social Fam HX - Past Medical History Medical history: other Additional medical history: enlarged heart - Social History Smoking Status: Former smoker Smokeless Tobacco Status: No Alcohol use: none Drug use: none Medications and Allergies Sertraline [Zoloft] 50 mg PO DAILY 02/21/19 [History] Prazosin [Minipress] 1 mg PO HS 02/22/19 [History] Propranolol LA (24 HR) [Inderal LA] 60 mg PO DAILY 02/23/19 [History] Allergy/AdvReac Type Severity Reaction Status Date / Time No Known Allergies Allergy Verified 02/22/19 12:20 ROS unobtainable: due to mental status All Systems Reviewed: The remainder of the systems were reviewed and are negative - Constitutional Constitutional: no fever(s) Physical Exam - Constitutional Vitals: Temp Pulse Resp BP Pulse Ox 97.6 F 73 20 155/83 91 02/24/19 11:52 02/24/19 11:52 02/24/19 11:52 02/24/19 11:52 02/24/19 11:52 General appearance: no acute distress Exam: Constitiutional: Confused. No acute distress noted Vascular: 2/4 DP/PT bilaterally, CFT <3 sec to all digits, warm to warm from tibia to toes bilaterally Neurologic: Sensation to touch, normal plantar response Dermatologic: Contusion noted to left medial malleolus measuring 4.5 cm x 1.2 cm x 0.3 cm. Proximal aspect of contusion with eschar noted. Left distal tibia with 1 x 1 x 0.3 cm wound with small opening noted, eschar noted to wound bed. Tunneling noted. 3 cm at 5 o'clock, 3.3 cm at 7 o'clock, undermining noted from 9 to 12. Periwound area erythematous. No edema noted. No cellulitis, no lymphangitis noted Musculoskeletal: 3/5 muscle strength and normal tone bilaterally. Results - Labs Result Diagrams: 02/24/19 09:01 02/24/19 09:01 Labs: Abnormal lab results WBC 3.8 K/mcL (4.3-11.1) L 02/24/19 09:01 RBC 5.55 M/mcL (4.19-5.50) H 02/20/19 13:29 Hgb 17.9 g/dL (12.9-16.9) H 02/20/19 13:29 Hct 54.0 % (37.5-50.1) H 02/20/19 13:29 Plt Count 59 K/mcL (140-400) L D 02/24/19 09:01 MPV 13.0 fL (9.4-12.4) H 02/20/19 13:29 10.0 % (0-4) H 02/21/19 08:09 0.5 K/mcL (0.6-4.6) L 02/23/19 07:11 Present (Not Present) A 02/21/19 08:09 Decreased (Normal) L 02/24/19 09:01 Immature Plt Fraction 7.9 % (1.1-6.1) H 02/24/19 09:01 1+ (Not Present) A 02/24/19 09:01 ESR 25 mm/hr (0-10) H 02/20/19 13:29 Sodium 150 mEq/L (136-145) H 02/24/19 09:01 Chloride 121 mEq/L (98-107) H 02/24/19 09:01 Carbon Dioxide 20 mEq/L (23-29) L 02/24/19 09:01 BUN 36 mg/dL (8-23) H 02/21/19 08:09 1.39 mg/dL (0.70-1.30) H 02/23/19 07:11 Est GFR ( Amer) 48 (> 60) L 02/21/19 08:09 Est GFR (Non-Af Amer) 57 (> 60) L 02/24/19 09:01 Glucose 123 mg/dL (70-105) H 02/24/19 09:01 315 (280-300) H 02/24/19 09:01 Calcium 7.9 mg/dL (8.6-10.3) L 02/24/19 09:01 Phosphorus 5.2 mg/dL (2.7-4.5) H 02/20/19 13:29 Magnesium 3.1 mg/dL (1.6-2.6) H 02/20/19 13:29 1.1 mg/dL (0.3-1.0) H 02/20/19 13:29 0.4 mg/dL (0.0-0.2) H 02/23/19 07:11 AST 102 Units/L (13-39) H 02/23/19 07:11 486 Units/L (30-223) H 02/21/19 08:09 0.04 ng/mL (< 0.04) H* 02/22/19 14:10 93 mg/L (Less than 10) H 02/23/19 11:04 5.1 g/dL (6.4-8.9) L 02/23/19 07:11 2.8 g/dL (3.5-5.7) L 02/23/19 07:11 3.25 g/dL (3.75-5.01) L 02/21/19 16:17 2.3 g/dL (2.4-3.5) L 02/23/19 07:11 Vitamin B12 139 pg/mL (250-1100) L 02/20/19 19:54 Cloudy (Clear) A 02/23/19 11:40 100 mg/dL (Neg-Trace) H 02/23/19 11:40 15 mg/dL (Negative) H 02/23/19 11:40 Small (Negative) H 02/23/19 11:40 2.0 mg/dL (Normal) H 02/23/19 11:40 5-15 per hpf (0-3) H 02/23/19 11:40 15-30 per hpf (0-3) H 02/23/19 11:40 Ur Squamous Epith Cells Many per lpf (None-Few) H 02/23/19 11:40 Ur Culture Indicated? YES (NO) A 02/23/19 11:40 H & H 02/24/19 Range/Units 09:01 Hgb 14.5 (12.9-16.9) g/dL Hct 44.2 (37.5-50.1) % All other labs normal. - Diagnostic results Ankle/Foot x-ray: report reviewed Ankle/Foot MRI: report reviewed Ankle/Foot CT: report reviewed Consult Discharge Plan - Plan [facility]: [facility] [Primary Care Provider] -
--- NOTE | 2019-02-24 14:14 | Neurology - Consult Note ---
Date of Encounter: 02/24/19 Time of Encounter: 14:10 Assessment and Plan (1) Confusion Current Visit: Yes Status: Acute -Patient appears to be confused -Alert and oriented 1 at this time however per chart review patient has usually been alert and oriented 2 and the patient has been slightly improving in terms of mentation. -Etiology unknown at this time concern for metabolic encephalopathy versus or contributing to an underlying dementia, other sources could include liver disease, renal disease however no asterixis was present. Patient denies recent drinking history but had mild transaminitis and evidence of fatty liver. Patient is also thrombocytopenic and infection could be causing some of his confusion. Throughout his hospital stay. The patient has not had stable electrolytes although not severely changed they have been fluctuating. CT also found no acute abnormalities did show's chronic ischemic changes -Patient was alone in the room. Like to reassess to better understand baseline level of mentation -Exam was limited due to level of mentation and generalized weakness Plan - MRI ordered and pending - EEG ordered and pending (2) Metabolic encephalopathy Current Visit: Yes Status: Acute plan as above History of Present Illness HPI: Mr. Lemos is a 73 year old male who came in following a dog bite which developed cellulitis. Throat patient hospital stay been treated for infection. He has also been found to have some confusion during his stay at the hospital. It is unknown exactly what patient's baseline is. There may be concern for dementia. Patient does seem to be consistently confused. Patient only a&o 1 during my exam. Patient was mumbling will occasionally give appropriate answers. Patient attempted to cooperate with the exam. A lot of times he would lose focus. Or he would mumble unintelligibly. Patient denied drinking recently said he quit a long time ago. Patient has name. He did not know where he was. He did know what state he was in. He did not know why he was at hospital. Patient reportedly said he had to go would not answer when asked where. Patient had to be asked questions several times in order to respond roughly half the time which he responded appropriately. At this time is difficult to assess change in mental status as we are unsure of his baseline. At times patient would look around the room. Asked him if you seeing anything patient said yes after furthe r questioning patient said he saw a knife. Then he change his story that he found a knife along time ago. Past Med Surg Social Fam HX - Past Medical History Medical history: other Additional medical history: enlarged heart - Social History Smoking Status: Former smoker Smokeless Tobacco Status: No Alcohol use: none Drug use: none Medications and Allergies Sertraline [Zoloft] 50 mg PO DAILY 02/21/19 [History] Prazosin [Minipress] 1 mg PO HS 02/22/19 [History] Propranolol LA (24 HR) [Inderal LA] 60 mg PO DAILY 02/23/19 [History] Allergy/AdvReac Type Severity Reaction Status Date / Time No Known Allergies Allergy Verified 02/22/19 12:20 ROS unobtainable: due to mental status All Systems: The remainder of the systems were reviewed and are negative Physical Examination - Vital Signs Vital Signs: Initial Vital Signs Temp Pulse Resp BP Pulse Ox 98.1 F 93 16 0/0 96 02/20/19 11:50 02/20/19 11:50 02/20/19 11:50 02/20/19 11:50 02/20/19 11:50 - Exam Exam: No noted asterixis - Constitutional General appearance: comfortable - Neurologic Sensorimotor examination: intact Detailed motor examination: other (Appeared to be weak however this was equal bilaterally and in both upper and lower extremities) Motor examination - right side: 4/5: deltoids, biceps, triceps, wrist flexion, wrist extension, teaching assistant, hip flexors, tibialis Anterior, quadriceps, toe extension (EHL), plantarflexion Motor examination - left side: 4/5: deltoids, biceps, triceps, wrist flexion, wrist extension, hip flexors, teaching assistant, quadriceps, tibialis Anterior, toe extension (EHL), plantarflexion Detailed sensory examination: intact Reflexes: Biceps: 2+, Triceps: 2+, Brachioradialis: 2+ Mental Status Examination: awake, alert, oriented to person, opens eyes to voice, opens eyes to noxious stimulation, makes eye contact (Partially), follows simple commands, localizes noxious stimulation, no spontaneous eye opening to voice or tactile stimulation, demented (Concern he may have baseline dementia), impaired memory, impaired cognition, not reliable historian Cranial nerve examination: PERRL, EOMI (Unable to assess as patient will cooperate with muscle testing), visual moscoso intact (Unable to assess), corneal reflexes brisk symmetrically, sensory to face intact, mastication intact, no facial asymmetry is present, soft palate elevates bilaterally upon phonation (Tongue was black), flexes SCM and trapezius muscles symmetrically with full power (Mild decrease in strength bilaterally), tongue protrudes midline Cerebellar examination: performs finger to nose and heel to ch symmetrically without ataxia (Unable to assess due to. Weakness) Results - Laboratory Findings CBC and BMP: 02/24/19 09:01 02/24/19 09:01 Abnormal lab findings: Abnormal lab results WBC 3.8 K/mcL (4.3-11.1) L 02/24/19 09:01 RBC 5.55 M/mcL (4.19-5.50) H 02/20/19 13:29 Hgb 17.9 g/dL (12.9-16.9) H 02/20/19 13:29 Hct 54.0 % (37.5-50.1) H 02/20/19 13:29 Plt Count 59 K/mcL (140-400) L D 02/24/19 09:01 MPV 13.0 fL (9.4-12.4) H 02/20/19 13:29 10.0 % (0-4) H 02/21/19 08:09 0.5 K/mcL (0.6-4.6) L 02/23/19 07:11 Present (Not Present) A 02/21/19 08:09 Decreased (Normal) L 02/24/19 09:01 Immature Plt Fraction 7.9 % (1.1-6.1) H 02/24/19 09:01 1+ (Not Present) A 02/24/19 09:01 ESR 25 mm/hr (0-10) H 02/20/19 13:29 Sodium 150 mEq/L (136-145) H 02/24/19 09:01 Chloride 121 mEq/L (98-107) H 02/24/19 09:01 Carbon Dioxide 20 mEq/L (23-29) L 02/24/19 09:01 BUN 36 mg/dL (8-23) H 02/21/19 08:09 1.39 mg/dL (0.70-1.30) H 02/23/19 07:11 Est GFR ( Amer) 48 (> 60) L 02/21/19 08:09 Est GFR (Non-Af Amer) 57 (> 60) L 02/24/19 09:01 Glucose 123 mg/dL (70-105) H 02/24/19 09:01 315 (280-300) H 02/24/19 09:01 Calcium 7.9 mg/dL (8.6-10.3) L 02/24/19 09:01 Phosphorus 5.2 mg/dL (2.7-4.5) H 02/20/19 13:29 Magnesium 3.1 mg/dL (1.6-2.6) H 02/20/19 13:29 1.1 mg/dL (0.3-1.0) H 02/20/19 13:29 0.4 mg/dL (0.0-0.2) H 02/23/19 07:11 AST 102 Units/L (13-39) H 02/23/19 07:11 486 Units/L (30-223) H 02/21/19 08:09 0.04 ng/mL (< 0.04) H* 02/22/19 14:10 93 mg/L (Less than 10) H 02/23/19 11:04 5.1 g/dL (6.4-8.9) L 02/23/19 07:11 2.8 g/dL (3.5-5.7) L 02/23/19 07:11 3.25 g/dL (3.75-5.01) L 02/21/19 16:17 2.3 g/dL (2.4-3.5) L 02/23/19 07:11 Vitamin B12 139 pg/mL (250-1100) L 02/20/19 19:54 Cloudy (Clear) A 02/23/19 11:40 100 mg/dL (Neg-Trace) H 02/23/19 11:40 15 mg/dL (Negative) H 02/23/19 11:40 Small (Negative) H 02/23/19 11:40 2.0 mg/dL (Normal) H 02/23/19 11:40 5-15 per hpf (0-3) H 02/23/19 11:40 15-30 per hpf (0-3) H 02/23/19 11:40 Ur Squamous Epith Cells Many per lpf (None-Few) H 02/23/19 11:40 Ur Culture Indicated? YES (NO) A 02/23/19 11:40 Consult Discharge Plan - Plan [facility]errals: [facility] [Primary Care Provider] -
[2019-02-24] MEDS ORDERED: Cyanocobalamin (B-12) 1,000 MCG/ML VIAL IM ONE (14:54)
[2019-02-24] MEDS: D5% in Lactated Ringers 1,000 ML IVC SCH (15:29)
--- NOTE | 2019-02-24 16:09 | Oncology Inp Progress Note ---
<Vijaya Brady - Last Filed: 02/24/19 16:07> Date of Encounter: 02/24/19 Time of Encounter: 13:30 (1) Thrombocytopenia Current Visit: Yes Status: Acute Assessment and plan: Possibly from infectious process, left lower extremity skin changes swelling imaging findings once suggestive of local inflammation/infection. CT scan f indings reviewed. On antibiotics Zosyn which could further cause thrombocytopenia, leukopenia. Hemoglobin hematocrit repeated back to normal, less suspicious for hematologic disorder/thrombotic microangiopathy. Fatty liver additional imaging may be necessary at later date to rule out cirrhosis portal hypertension. 02/24/19: platelets rising to 59 No signs of active bleeding. Plan: Viral hepatitis panel- nonreactive Peripheral smear by pathology: thrombocytopenia. Unremarkable morphology. B12 deficiency, subcutaneous injection him vs oral supplementation ordered. SPEP ordered. no monoclonal bands noted. ID recommendations for treatment of cellulitis without osteomyelitis. No debridement planned at this time. Continue to monitor clinically/labs. Continue to monitor daily CBC. Patient will need to followup with Dr. العلي for new patient appointment at [facility] 2 weeks after discharge. Appointment to be made at time of discharge. Oncology: Subj Interval history: Mr. Lemos is awake and alert. Wound care nurse at bedside changing dressing to LLE/foot. He continues with confusion. He does not respond appropriately to questions, but was able to verbalize that he lives in [place], [place] with his . He speech is still mumbled. Attempted to discuss lab results with patient, but appears more confused by information. Spoke with primary RN that notes speaking to and that the patient's behavior is not his baseline. She notes that he is typically alert and oriented. Oncology: Obj Data - Labs CBC & Chem 7: 02/24/19 09:01 02/24/19 09:01 Consult Discharge Plan - Plan [facility]errals: [facility] [Primary Care Provider] - Inpatient Charges Provider: Dr. Marco Lopez <Burt Lopez - Last Filed: 02/25/19 07:38> Date of Encounter: 02/25/19 (1) Thrombocytopenia Current Visit: Yes Status: Acute Assessment and plan: I examined this patient and my medical decision-making was reviewed with the Advanced Practice Nurse, Vijaya Brady. I agree with the documented findings, disposition and treatment plan as described except to the extent set forth below. - Constitutional General appearance: no acute distress - Head Head exam: Present: atraumatic - Respiratory Respiratory exam: Present: CTAB - Extremities Exam Additional comments: Lt lower ext wound in dressing Oncology: Obj Data - Labs CBC & Chem 7: 02/25/19 03:27 02/25/19 03:27 Inpatient Charges Provider: Dr. Marco Lopez Follow up - Inpatient: [id number]
[2019-02-25 04:17] LABS: Hematocrit 44.2 % (37.5-50.1); Hemoglobin 14.4 g/dL (12.9-16.9); Immature Platelets 9.6 % (1.1-6.1); Mean Corpuscular HGB Conc 32.6 g/dL (31.6-35.5); Mean Corpuscular Hemoglobin 32.1 pg (28.0-33.3); Mean Corpuscular Volume 98.7 fL (83.0-100.0); Mean Platelet Volume 12.1 fL (9.4-12.4); Red Blood Count 4.48 M/mcL (4.19-5.50); Red Cell Distribution Width 13.8 % (11.5-14.5); White Blood Count 4.4 K/mcL (4.3-11.1)
[2019-02-25 04:23] LABS: BUN/Creatinine Ratio 16 (6-26); Blood Urea Nitrogen 22 mg/dL (8-23); Calcium 8.1 mg/dL (8.6-10.3); Carbon Dioxide 26 mEq/L (23-29); Chloride 120 mEq/L (98-107); Glucose 139 mg/dL (70-105); Magnesium 2.3 mg/dL (1.6-2.6); Osmolality,Calculated 324 (280-300); Phosphorous 2.5 mg/dL (2.7-4.5); Potassium 3.7 mEq/L (3.5-5.1); Sodium 154 mEq/L (136-145); eGFR For African Americans > 60 (> 60); eGFR For Non-African Americans 52 (> 60)
[2019-02-25] MEDS: D5% in Lactated Ringers 1,000 ML IVC SCH (05:00)
[2019-02-25 05:14] LABS: Platelet Count 65 K/mcL (140-400)
[2019-02-25 05:51] LABS: Lymphocytes # 0.6 K/mcL (0.6-4.6); Monocytes # 0.1 K/mcL (0.0-1.3); Neutrophils # 3.7 K/mcL (1.6-8.9)
[2019-02-25 05:52] LABS: Platelet Estimate Decreased (Normal); Reactive Lymphocytes Present (Not Present); Smudge Cells Present (Not Present)
[2019-02-25] MEDS: Ampicillin/Sulbactam 3,000 MG in 0.9 % Sodium Chloride Mini Bag 100 ML IVPB SCH ×3 (06:22→21:09)
--- NOTE | 2019-02-25 08:16 | EEG/EMG/Oth Biometrics Report ---
EEG Procedure Report Date of procedure: 02/24/19 EEG Procedure: Routine EEG Procedure Note: Report: This EEG was acquired with standard international 10-20 electrode placement system with EKG recording. The background activity during this EEG was replaced by a mixture of theta and delta activity with best frequency up to 6- 6.5 Hz. The background activity was reactive. Sleep stages likely present due to presence of structures resembling k-complexes and persistent delta slowing There are no electrographic seizures identified during this tracing. There are no epileptiform discharges or focal slowing noted during this recording. Photic stimulation produced no abnormalities. HV not performed during this study. EKG tracing showed no significant cardiac dysarrhythmia. Impression: This is an abnormal EEG due to presence of moderate diffuse background slowing. No electrographic seizures, no EDs, no focal slowing. EEG activity was reactive. Clinical Correlation: This EEG is consistent with moderate diffuse cerebral dysfunction that can be seen in patients with encephalopathy, metabolic/toxic, electrolyte derangement, or sedative effects. Clinical correlation suggested.
[2019-02-25] MEDS ORDERED: Thiamine (B-1) 100 MG in D5% in Water 50 ML IVPB ONE (08:58)
--- NOTE | 2019-02-25 09:00 | Internal Med Progress Note ---
Hospitalist Progress Note - Encounter Date of Encounter: 02/25/19 Time of Encounter: 08:50 - Subjective Interval History: no acute events overnight - Exam Vitals: Temp Pulse Resp BP Pulse Ox 98.1 F 72 20 150/98 90 02/25/19 07:55 02/25/19 07:55 02/25/19 07:55 02/25/19 07:55 02/25/19 07:55 Exam: GEN: NAD CVS:RRR. S1, S2, No m/r/g RESP: CTAB ABD: Soft, NT, ND, +BS EXT: No edema, left medial malleolus laceration noted with scattered but no drainage that extends across the medial malleolus horizontally., Other laceration is on the distal leg that is smaller in size with no drainage 2+ DP NEURO: Alert and oriented 2 but otherwise nonfocal, CN II-XII intact, No focal motor or sensory deficits - Assessment and Plan (1) Metabolic encephalopathy Current Visit: Yes Status: Acute Assessment and Plan: Possibly has some dementia at baseline but per family has apparently been more confused than usual CT head negative for any acute abnormalities. MRI head ordered, neuro consulted and recs appreciated Considering rabies as a possibility for unresolving confusion, but patient does not have the classic signs of rabies 02/25. Discussed with patient's neighbor and extensively, appears the dog's vaccinations are uptodate Patient exhibits a continuing decline in mental status, will proceed with tetanus vaccination and rabies immunoglobulin and vaccine Follow up MRI head. LP requested. Obtain RPR, HSV PCR. Started on acyclovir (2) Cellulitis Current Visit: Yes Status: Acute Assessment and Plan: On vanc and unasyn. ID following Will obtain MRI left foot to r/o osteomyelitis due to temp spikes Follow up blood cultures. Chest xray for pneumonia came back negative Podiatry consulted for foot cellulitis and recommend no acute intervention for her cellulitis (3) KEMI (acute kidney injury) Current Visit: Yes Status: Acute Assessment and Plan: Likely prerenal. Continue IV fluids (4) Transaminitis Current Visit: Yes Status: Acute Assessment and Plan: Has elevated LFTs possibly due to sepsis. Denies alcohol use. We will check right upper quadrant ultrasound. f/u on labs this am. 6/4 Right upper quadrant ultrasound shows fatty liver-appears to be improving (5) Elevated troponin Current Visit: Yes Status: Acute Assessment and Plan: Likely demand ischemia due infection vs KEMI. trended and remains stable at .06, .07, .07. EKG with nothing acute indicative of ischemia- denies any chest pain (6) Thrombocytopenia Current Visit: Yes Status: Acute Assessment and Plan: Unsure if chronic. Also has leukopenia. I wonder if he has liver issues. Will monitor for now but may end up consulting hematology. RUQ US pending. 02/22 Unsure of chronic also leukopenic right upper quadrant ultrasound does show fatty liver-consult hematology as needed (7) DVT prophylaxis Current Visit: Yes Status: Acute Assessment and Plan: SCDs - Time Spent with Patient Total time spent is greater than 50% in coordination of care (as documented) at patient's floor/unit and/or counseling patient: Internal Medicine: Result - Labs CBC & Chem 7: 02/25/19 03:27 02/25/19 03:27 Labs: Short CBC 02/24/19 02/25/19 Range/Units 09:01 03:27 WBC 3.8 L 4.4 (4.3-11.1) K/mcL Hgb 14.5 14.4 (12.9-16.9) g/dL Hct 44.2 44.2 (37.5-50.1) % Plt Count 59 L D 65 L (140-400) K/mcL Neutrophils # 2.7 3.7 (1.6-8.9) K/mcL BMP 02/24/19 02/25/19 09:01 03:27 Sodium 150 H 154 H Potassium 3.5 3.7 Chloride 121 H 120 H Carbon Dioxide 20 L 26 BUN 23 22 Creatinine 1.25 1.35 H Glucose 123 H 139 H Calcium 7.9 L 8.1 L - ABG Interpretation ABG results: PT/INR, D-dimer PT 11.6 Seconds (9.4-12.1) 02/21/19 17:24 Consult Discharge Plan - Plan [facility]errals: [facility] [Primary Care Provider] - (2) Cellulitis Qualifiers: Site of cellulitis: extremity Site of cellulitis of extremity: lower extremity Laterality: left Qualified Code(s): L03.116 - Cellulitis of left lower limb
[2019-02-25] MEDS ORDERED: *HR* LORazepam 2 MG/ML VIAL IVP ONE ×2 (09:20→15:29)
--- NOTE | 2019-02-25 10:06 | Neurology Progress Note ---
<Gerry Jennings - Last Filed: 02/25/19 12:29> Date of Encounter: 02/25/19 Time of Encounter: 10:03 Assessment and Plan (1) Confusion Current Visit: Yes Status: Acute -Patient appears to be confused -Alert and oriented 1 at this time however per chart review patient has usually been alert and oriented 2 and the patient has been slightly improving in terms of mentation. -Etiology unknown at this time concern for metabolic encephalopathy versus or contributing to an underlying dementia, other sources could include liver disease, renal disease however no asterixis was present. Patient denies recent drinking history but had mild transaminitis and evidence of fatty liver. Patient is also thrombocytopenic and infection could be causing some of his confusion. Throughout his hospital stay. The patient has not had stable electrolytes although not severely changed they have been fluctuating. CT also found no acute abnormalities did show's chronic ischemic changes. Speaking with hospitalist it sounds like dog that bite patient is no showing signs of rabies. Low suspicion of rabies at this time. - At this time there is a low suspicion for REEL CUTTER infection but MRI is pending, no SHIRLEY or nuchal rigidity -EEG "This EEG is consistent with moderate diffuse cerebral dysfunction that can be seen in patients with encephalopathy, metabolic/toxic, electrolyte derangement, or sedative effects. Clinical correlation suggested." no eveidence of seizure activity during tracing. -Patient was alone in the room. Like to reassess to better understand baseline level of mentation -Exam was limited due to level of mentation and generalized weakness Plan - MRI ordered and pending - Continue medical treatment (2) Metabolic encephalopathy Current Visit: Yes Status: Acute suspected plan as above Subjective Interval history: Patient continue to be confused. He was alert and oriented x2 for me today. He did not know why he was at the hospital. He is responisve but requires constant direction and repeating of questions or commands. at one point the patient told me to be quiet because he was hearing things. did not say what he heard but denied visual or auditory hallucinations. Objective - Constitutional Vitals: Temp Pulse Resp BP Pulse Ox 98.1 F 72 20 150/98 90 02/25/19 07:55 02/25/19 07:55 02/25/19 07:55 02/25/19 07:55 02/25/19 07:55 - Neurological Exam Sensorimotor examination: Present: intact, other (overall patient was difficult to assess due to his mental status) Motor Examination: Present: other (Appeared to be weak however this was equal bilaterally and in both upper and lower extremities) Motor examination - right side: 45: deltoids, biceps, triceps, wrist flexion, wrist extension, bottom crane operator, hip flexors, tibialis Anterior, quadriceps, toe extension (EHL), plantarflexion Motor examination - left side: 45: deltoids, biceps, triceps, wrist flexion, wrist extension, hip flexors, bottom crane operator, quadriceps, tibialis Anterior, toe extension (EHL), plantarflexion Sensation intact: Present: intact Reflexes: Biceps: 2+, Triceps: 2+, Brachioradialis: 2+, Patella: 2+, Achilles: 2+ Mental Status Examination: Present: awake, alert, oriented to person, opens eyes to voice, opens eyes to noxious stimulation, makes eye contact (Partially), follows simple commands, localizes noxious stimulation, no spontaneous eye opening to voice or tactile stimulation, demented (Concern he may have baseline dementia), impaired memory, impaired cognition, not reliable historian Cranial nerve examination: Present: PERRL, EOMI (Unable to assess as patient will cooperate with muscle testing), visual moscoso intact (Unable to assess), corneal reflexes brisk symmetrically, sensory to face intact, mastication intact, no facial asymmetry is present, soft palate elevates bilaterally upon phonation (Tongue was black), flexes SCM and trapezius muscles symmetrically with full power (Mild decrease in strength bilaterally), tongue protrudes midline Cerebellar examination: Present: performs finger to nose and heel to ch symmetrically without ataxia (Unable to assess due to Weakness) Results - Laboratory Findings CBC and BMP: 02/25/19 03:27 02/25/19 03:27 Abnormal lab findings: Abnormal lab results WBC 3.8 K/mcL (4.3-11.1) L 02/24/19 09:01 RBC 5.55 M/mcL (4.19-5.50) H 02/20/19 13:29 Hgb 17.9 g/dL (12.9-16.9) H 02/20/19 13:29 Hct 54.0 % (37.5-50.1) H 02/20/19 13:29 Plt Count 65 K/mcL (140-400) L 02/25/19 03:27 MPV 13.0 fL (9.4-12.4) H 02/20/19 13:29 6.0 % (0-4) H 02/25/19 03:27 0.5 K/mcL (0.6-4.6) L 02/23/19 07:11 Present (Not Present) A 02/25/19 03:27 Present (Not Present) A 02/25/19 03:27 Decreased (Normal) L 02/25/19 03:27 Immature Plt Fraction 9.6 % (1.1-6.1) H 02/25/19 03:27 1+ (Not Present) A 02/24/19 09:01 ESR 25 mm/hr (0-10) H 02/20/19 13:29 Sodium 154 mEq/L (136-145) H 02/25/19 03:27 Chloride 120 mEq/L (98-107) H 02/25/19 03:27 Carbon Dioxide 20 mEq/L (23-29) L 02/24/19 09:01 BUN 36 mg/dL (8-23) H 02/21/19 08:09 1.35 mg/dL (0.70-1.30) H 02/25/19 03:27 Est GFR ( Amer) 48 (> 60) L 02/21/19 08:09 Est GFR (Non-Af Amer) 52 (> 60) L 02/25/19 03:27 Glucose 139 mg/dL (70-105) H 02/25/19 03:27 324 (280-300) H 02/25/19 03:27 Calcium 8.1 mg/dL (8.6-10.3) L 02/25/19 03:27 Phosphorus 2.5 mg/dL (2.7-4.5) L 02/25/19 03:27 Magnesium 3.1 mg/dL (1.6-2.6) H 02/20/19 13:29 1.1 mg/dL (0.3-1.0) H 02/20/19 13:29 0.4 mg/dL (0.0-0.2) H 02/23/19 07:11 AST 102 Units/L (13-39) H 02/23/19 07:11 486 Units/L (30-223) H 02/21/19 08:09 0.04 ng/mL (< 0.04) H* 02/22/19 14:10 93 mg/L (Less than 10) H 02/23/19 11:04 5.1 g/dL (6.4-8.9) L 02/23/19 07:11 2.8 g/dL (3.5-5.7) L 02/23/19 07:11 3.25 g/dL (3.75-5.01) L 02/21/19 16:17 2.3 g/dL (2.4-3.5) L 02/23/19 07:11 Vitamin B12 139 pg/mL (250-1100) L 02/20/19 19:54 Cloudy (Clear) A 02/23/19 11:40 100 mg/dL (Neg-Trace) H 02/23/19 11:40 15 mg/dL (Negative) H 02/23/19 11:40 Small (Negative) H 02/23/19 11:40 2.0 mg/dL (Normal) H 02/23/19 11:40 5-15 per hpf (0-3) H 02/23/19 11:40 15-30 per hpf (0-3) H 02/23/19 11:40 Ur Squamous Epith Cells Many per lpf (None-Few) H 02/23/19 11:40 Ur Culture Indicated? YES (NO) A 02/23/19 11:40 Consult Discharge Plan - Plan [facility]errals: [facility] [Primary Care Provider[facility] - <Keeley Hagan - Last Filed: 02/25/19 14:20> Date of Encounter: 02/25/19 Objective - Constitutional Vitals: Temp Pulse Resp BP Pulse Ox 99.6 F 82 19 139/90 90 02/25/19 11:52 02/25/19 11:52 02/25/19 11:52 02/25/19 11:52 02/25/19 11:52 Results - Laboratory Findings CBC and BMP: 02/25/19 03:27 02/25/19 03:27 Abnormal lab findings: Abnormal lab results WBC 3.8 K/mcL (4.3-11.1) L 02/24/19 09:01 RBC 5.55 M/mcL (4.19-5.50) H 02/20/19 13:29 Hgb 17.9 g/dL (12.9-16.9) H 02/20/19 13:29 Hct 54.0 % (37.5-50.1) H 02/20/19 13:29 Plt Count 65 K/mcL (140-400) L 02/25/19 03:27 MPV 13.0 fL (9.4-12.4) H 02/20/19 13:29 6.0 % (0-4) H 02/25/19 03:27 0.5 K/mcL (0.6-4.6) L 02/23/19 07:11 Present (Not Present) A 02/25/19 03:27 Present (Not Present) A 02/25/19 03:27 Decreased (Normal) L 02/25/19 03:27 Immature Plt Fraction 9.6 % (1.1-6.1) H 02/25/19 03:27 1+ (Not Present) A 02/24/19 09:01 ESR 25 mm/hr (0-10) H 02/20/19 13:29 Sodium 154 mEq/L (136-145) H 02/25/19 03:27 Chloride 120 mEq/L (98-107) H 02/25/19 03:27 Carbon Dioxide 20 mEq/L (23-29) L 02/24/19 09:01 BUN 36 mg/dL (8-23) H 02/21/19 08:09 1.35 mg/dL (0.70-1.30) H 02/25/19 03:27 Est GFR ( Amer) 48 (> 60) L 02/21/19 08:09 Est GFR (Non-Af Amer) 52 (> 60) L 02/25/19 03:27 Glucose 139 mg/dL (70-105) H 02/25/19 03:27 324 (280-300) H 02/25/19 03:27 Calcium 8.1 mg/dL (8.6-10.3) L 02/25/19 03:27 Phosphorus 2.5 mg/dL (2.7-4.5) L 02/25/19 03:27 Magnesium 3.1 mg/dL (1.6-2.6) H 02/20/19 13:29 1.1 mg/dL (0.3-1.0) H 02/20/19 13:29 0.4 mg/dL (0.0-0.2) H 02/23/19 07:11 AST 102 Units/L (13-39) H 02/23/19 07:11 486 Units/L (30-223) H 02/21/19 08:09 0.04 ng/mL (< 0.04) H* 02/22/19 14:10 93 mg/L (Less than 10) H 02/23/19 11:04 5.1 g/dL (6.4-8.9) L 02/23/19 07:11 2.8 g/dL (3.5-5.7) L 02/23/19 07:11 3.25 g/dL (3.75-5.01) L 02/21/19 16:17 2.3 g/dL (2.4-3.5) L 02/23/19 07:11 Vitamin B12 139 pg/mL (250-1100) L 02/20/19 19:54 Cloudy (Clear) A 02/23/19 11:40 100 mg/dL (Neg-Trace) H 02/23/19 11:40 15 mg/dL (Negative) H 02/23/19 11:40 Small (Negative) H 02/23/19 11:40 2.0 mg/dL (Normal) H 02/23/19 11:40 5-15 per hpf (0-3) H 02/23/19 11:40 15-30 per hpf (0-3) H 02/23/19 11:40 Ur Squamous Epith Cells Many per lpf (None-Few) H 02/23/19 11:40 Ur Culture Indicated? YES (NO) A 02/23/19 11:40
[2019-02-25] MEDS: D5% in Water 1,000 ML IVC SCH (10:49)
[2019-02-25] MEDS: Thiamine (B-1) 500 MG in 0.9 % Sodium Chloride 100 ML IVPB SCH ×3 (10:49→21:54)
[2019-02-25] MEDS: Propranolol LA (24 HR) 60 MG CAP.SA.24H PO SCH (10:50)
[2019-02-25] MEDS: Cyanocobalamin (B-12) 1,000 MCG TABLET PO SCH (10:50)
[2019-02-25] MEDS ORDERED: RABIES IMMUNE GLOBULIN/PF 1,500 UNIT/5 ML VIAL IM ONE (11:45)
[2019-02-25] MEDS ORDERED: Rabies Vaccine 2.5 UNIT VIAL IM ONE (11:45)
[2019-02-25] MEDS ORDERED: Tdap (Boostrix) Vaccine 0.5 ML SYRINGE IM ONE (12:41)
--- NOTE | 2019-02-25 13:26 | Infectious Disease Progress No ---
ID Progress Note Date of Encounter: 02/25/19 Time of Encounter: 09:30 - Subjective Subjective: Patient seen and examined. No acute events noted overnight. Patient appears more alert and conversant today, but still intermittently confused and difficult to understand. Per nursing who spoke with patient's family, the patient is usually alert and oriented and continent of bowel and bladder. Denies pain at this time. Denies fevers, chills, or rigors. Denies chest pain, shortness of breath, or cough. Denies nausea, vomiting, diarrhea, or constipation. Denies abdominal pain or urinary complaints. Denies oral thrush or skin lesions. Denies pain in his back, joints, or extremities. - Objective CBC & Chem 7: 02/25/19 03:27 02/25/19 03:27 - Exam Vitals: Temp Pulse Resp BP Pulse Ox 99.6 F 82 19 139/90 90 02/25/19 11:52 02/25/19 11:52 02/25/19 11:52 02/25/19 11:52 02/25/19 11:52 Exam: Head: Atraumatic, normal inspection, normocephalic. Eye: EOMI, PERRLA, no scleral icterus noted. ENT: Mucous membranes dry. No odontogenic infection noted. Neck: Normal inspection, no meningismus. Respiratory: Clear to auscultation. No rales, respiratory distress, rhonchi, or wheezes noted. Cardiovascular: Regular rate and rhythm, S1 and S2 audible. No murmurs, rubs, or gallops. GI: Soft, nondistended, normal bowel sounds. Generalized tenderness noted with palpation. Extremities: No joint swelling, pedal edema, or tenderness noted. Left ankle dressing C/D/I. No erythema extending above or below the dressing. Tenderness noted on exam. Pain with ROM of the ankle. Neurological: Alert, oriented 2, no focal deficits. Appears somewhat confused intermittently. Psychiatric: Calm Skin: Dry, intact, warm. Normal color. No rashes. - Assessment and Plan (1) Sepsis Current Visit: Yes Status: Acute The patient had 2 sepsis criteria on admission with an acute kidney injury and abnormal liver function tests. Likely secondary to left foot cellulitis. WBC worse. Afebrile overnight. Still intermittently tachycardic. Blood cultures drawn 02/20/19 are no growth to date 2 sets. Repeat blood cultures drawn 02/23/19 are NGTD x 2 sets. Sepsis has improved, but mental status does not appear to be any better. Qualifiers: Sepsis type: sepsis due to unspecified organism Qualified Code(s): A41.9 - Sepsis, unspecified organism SNOMED Code(s): 27672708 (2) Dog bite Current Visit: Yes Status: Acute Location: Left ankle. The patient states it was his neighbor's dog and he is unsure if the dog was vaccinated. CT of the lower extremity showed subcutaneous edema over the anterior aspect of the distal leg with small amount subcutaneous hemorrhage and small amount of hemorrhage within the anterior compartment musculature, but no radiopaque foreign body or acute osseous abnormality. CRP mildly elevated at 18. CK elevated at 486. The patient states he is up-to-date on his tetanus vaccine, but I am not sure h ow reliable the history the patient is. Clinically, the foot appears unchanged other than some ecchymosis, but concerned that the patient is still having fevers despite broad-spectrum antibiotic cover age. MRI of the left foot showed no osteomyelitis or other acute osseous abnormality. There is subcutaneous edema compatible with cellulitis, but no drainable fluid collection. There is mild edema within the anterior compartment musculature compatible with myositis versus contusion. A small focus of heterogenous signal in the extensor digitorum longus muscle likely representing hemorrhage. Pharmacy contacted the patient's who states the neighbor's dog does not appear to be exhibiting symptoms of rabies and is up to date on vaccinations as far as she knows. Currently on Unasyn and Vancomycin. Qualifiers: Encounter type: initial encounter Qualified Code(s): W54.0XXA - Bitten by dog, initial encounter SNOMED Code(s): 462351613, 114249274 (3) Cellulitis Current Visit: Yes Status: Acute Location: Left foot and ankle. Likely secondary to recent dog bite. CT of the left lower extremity negative for abscess or acute osseous abnor mality. CRP mildly elevated at 18. Acute care surgery team consulted. Does not feel that there is any indication for surgical intervention at this time. Clinically improved. Podiatry consulted. Currently on Unasyn and Vancomycin. Qualifiers: Site of cellulitis: extremity Site of cellulitis of extremity: lower extremity Laterality: left Qualified Code(s): L03.116 - Cellulitis of left lower limb SNOMED Code(s): 694927920 (4) KEMI (acute kidney injury) Current Visit: Yes Status: Acute Etiology: Unclear. Infection versus other. Unsure what the patient's baseline is as he has not had any labs done here prior to this hospitalization. Improved. Strict I's and O's. Avoid nephrotoxins and dose adjust medications. SNOMED Code(s): 01026719, 56482914 (5) Elevated troponin Current Visit: Yes Status: Acute Etiology: Unclear. The patient denies any chest pain. Further workup and management per the primary team. SNOMED Code(s): 012318348, 721862774, 115840732 (6) Transaminitis Current Visit: Yes Status: Acute Etiology: Unclear. Resolved. Liver ultrasound showed findings consistent with fatty liver disease. The patient states he has a remote history of heavy alcohol use. SNOMED Code(s): 325342309, 835135520 (7) Thrombocytopenia Current Visit: Yes Status: Acute Etiology: Unclear. Infectious versus chronic etiologies. Improved. Heme/Onc consulted. SNOMED Code(s): 760729074 (8) Metabolic encephalopathy Current Visit: Yes Status: Acute Patient appears to have AMS. He is A/O x2. Improved. Unsure if this is his baseline. There is no family at the bedside and nursing is not aware. CT head shows age-indeterminant ischemic changes to the anterior left lentiform nucleus. No acute changes noted. No meningeal signs. Low index of suspicion for rabies since it appears that the dog has been exhibiting symptoms of rabies as far as we know. I contacted the ER who states that it does not appear that an animal bite form was completed in the ER. Since the dog does not have symptoms of rabies, very low likelihood that the patient's AMS is caused by rabies. Neurology consulted. EEG and MRI ordered, but not sure if the patient will be compliant with exams. SNOMED Code(s): 82290221 - Recommendations Recommendations: Continue to trend CBC and BMP. Await repeat blood cultures. Wound care per the podiatry team. Altered mental status workup per the neurology team. Continue Unasyn 3 grams IV Q6H. Continue Vancomycin IV. Pharmacy to dose. Goal trough ~15. Duration of treatment depends on the clinical picture. Consult Discharge Plan - Plan [facility]errals: [facility] [Primary Care Provider] - - Attending Attestation I have personally performed a face to face evaluation on this patient. I have reviewed and agree with the care plan. History and Exam by me shows: Assessment and plan: 1.Sepsis 2.Dog bite left ankle: CT of the lower extremities shows subcutaneous edema but no radiographic foreign bodies or acute osseous abnormality 3.Cellulitis left foot and ankle 4.Acute kidney injury etiology not clear 5.Transaminitis patient apparently also had history of heavy alcohol use 6.Metabolic encephalopathy I had a long discussion with the neighbor who is the next door neighbor. It was his dog that bit the patient. Neighbor tells me that his work at the vet office and his daughter up-to-date with her vaccines and they are not showing any signs of rabies. I also evaluated the patient twice more during the day. She is waxing and waning get. Patient tolerated the water and he actually was eager to drink it. No signs of water phobia. Patient has no drooling. Patient apparently is not that conservative [place] and was exposed to agent orange and had multiple psychiatric issues and is on multiple psychiatric meds. Currently not a heavy drinker as per his neighbor Will check RPR, check HSV PCR, will get an LP, EEG has been done and I reviewed with neurology and MRI is pending We will start empiric acyclovir.
--- NOTE | 2019-02-25 16:12 | Oncology Inp Progress Note ---
<Leonid Fernández - Last Filed: 02/25/19 16:15> Date of Encounter: 02/25/19 Oncology: Obj Data - Labs CBC & Chem 7: 02/25/19 03:27 02/25/19 03:27 Consult Discharge Plan - Plan Referrals: [facility] [Primary Care Provider] - Inpatient Charges Provider: Dr. Radha Fernández Follow up - Inpatient: [id number] - Attending Attestation I examined this patient and my medical decision-making was reviewed with the Advanced Practice Nurse. I agree with the documented findings, disposition and treatment plan as described except to the extent set forth below. 1. Presented with acute thrombocytopenia platelet count 30,000. This was isolated. Hemoglobin and neutrophils normal He also had acute kidney injury creatinine around 2.6 on admission which improved now to about 1.3 range. He does have mental status change and agitatio n Unlikely TTP but given above findings will proceed with ADAMTS 13 antibody. 2. Confusion and agitation. Nephrology involved. Reviewed Dr. Muñoz notes. MRI and PET recommended and lumbar puncture . 3. Elevated AST around 100 ALT normal. Thrombocytosis and Elevated Liver Enzymes Will Proceed with Ehrlichiosis Testing Viral Hepatitis Panel and Trip and DEUCE Palliative Antibody Negative. 4. Dog Bite to Left Lower Extremity. MRI Negative for Osteomyelitis. Infectious Disease Involved and he is getting Antibiotics Including Unasyn and Vancomycin. Apparently it was his neighbors dog and vaccination status unknown. Dog is still alive <Vijaya Brady - Last Filed: 02/25/19 17:24> Date of Encounter: 02/25/19 Time of Encounter: 11:00 (1) Thrombocytopenia Current Visit: Yes Status: Acute Assessment and plan: Possibly from infectious process, left lower extremity skin changes swelling imaging findings once suggestive of local inflammation/infection. CT scan findings reviewed. On antibiotics Zosyn which could further cause thrombocytopenia, leukopenia. Hemoglobin hematocrit repeated back to normal, less suspicious for hematologic disorder/thrombotic microangiopathy. Fatty liver additional imaging may be necessary at later date to rule out cirrhosis portal hypertension. 02/24/19: platelets rising to 59 No signs of active bleeding. Plan: Viral hepatitis panel- nonreactive Peripheral smear by pathology: thrombocytopenia. Unremarkable morphology. B12 deficiency, subcutaneous injection him vs oral supplementation ordered. SPEP ordered. no monoclonal bands noted. ID recommendations for treatment of cellulitis without osteomyelitis. No debridement planned at this time. Continue to monitor clinically/labs. Continue to monitor daily CBC. Patient will need to followup with Dr. العلي for new patient appointment at [facility] 2 weeks after discharge. Appointment to be made at time of discharge. Oncology: Subj Interval history: Patient awake and continues to be disoriented and confused. He is trying to climb out of bed with RN trying to calm him. Assisted back to reclining position. Patient is ordered to receive MRI of the brain, but agitated and likely unable remain still for imaging. RN giving lorazepam at this time. - Constitutional General appearance: disheveled - Respiratory Respiratory exam: Present: decreased breath sounds - Cardiovascular Cardiovascular exam: Present: RRR, +S1, +S2 - Extremities Exam Additional comments: L wound dressed. Dsg c/d/i - Neurological Exam Neurological exam: Present: alert, altered, strengths equal and symetr throughout - Psychiatric Psychiatric exam: Present: agitated, anxious Oncology: Obj Data - Labs CBC & Chem 7: 02/25/19 03:27 02/25/19 03:27
[2019-02-25] MEDS: Acyclovir 700 MG in D5% in Water 250 ML IVPB SCH (18:19)
[2019-02-26] MEDS: Acyclovir 700 MG in D5% in Water 250 ML IVPB SCH ×3 (01:10→14:40)
[2019-02-26] MEDS: Ampicillin/Sulbactam 3,000 MG in 0.9 % Sodium Chloride Mini Bag 100 ML IVPB SCH ×5 (04:06→22:45)
[2019-02-26] MEDS: D5% in Water 1,000 ML IVC SCH ×2 (04:07→17:18)
[2019-02-26 08:02] LABS: Nucleated Red Blood Cells 0.3 /100 WBC (0); Red Cell Distribution Width 13.4 % (11.5-14.5)
[2019-02-26 08:04] LABS: Hematocrit 38.9 % (37.5-50.1); Mean Corpuscular HGB Conc 33.4 g/dL (31.6-35.5); Mean Corpuscular Hemoglobin 32.6 pg (28.0-33.3); Mean Corpuscular Volume 97.5 fL (83.0-100.0); Mean Platelet Volume 12.4 fL (9.4-12.4); Monocytes # 0.2 K/mcL (0.0-1.3); Red Blood Count 3.99 M/mcL (4.19-5.50); White Blood Count 6.1 K/mcL (4.3-11.1)
[2019-02-26 08:23] LABS: Calcium 7.7 mg/dL (8.6-10.3); Magnesium 2.1 mg/dL (1.6-2.6); Phosphorous 3.1 mg/dL (2.7-4.5); Potassium 3.1 mEq/L (3.5-5.1)
[2019-02-26 08:40] LABS: Platelet Count 69 K/mcL (140-400)
[2019-02-26 08:44] LABS: Lymphocytes # 2.8 K/mcL (0.6-4.6); Neutrophils # 3.1 K/mcL (1.6-8.9)
[2019-02-26 08:46] LABS: Platelet Estimate Decreased (Normal); Reactive Lymphocytes Present (Not Present); Smudge Cells Present (Not Present)
--- NOTE | 2019-02-26 08:59 | Internal Med Progress Note ---
Hospitalist Progress Note - Encounter Date of Encounter: 02/26/19 Time of Encounter: 12:00 - Subjective Interval History: No acute events overnight. Still confused. - Exam Vitals: Temp Pulse Resp BP Pulse Ox 99.4 F 62 19 145/82 90 02/26/19 08:25 02/26/19 08:25 02/26/19 03:36 02/26/19 08:25 02/26/19 03:36 Exam: GEN: NAD CVS:RRR. S1, S2, No m/r/g RESP: CTAB ABD: Soft, NT, ND, +BS EXT: No edema, left medial malleolus laceration noted with scattered but no drainage that extends across the medial malleolus horizontally., Other laceration is on the distal leg that is smaller in size with no drainage 2+ DP NEURO: Alert and oriented 2 but otherwise nonfocal, CN II-XII intact, No focal motor or sensory deficits - Assessment and Plan (1) Metabolic encephalopathy Current Visit: Yes Status: Acute Assessment and Plan: Possibly has some dementia at baseline but per family has apparently been more confused than usual CT head negative for any acute abnormalities. MRI head ordered, neuro consulted and recs appreciated Considering rabies as a possibility for unresolving confusion, but patient does not have the classic signs of rabies 02/25. Discussed with patient's neighbor and extensively, appears the dog's vaccinations are uptodate Patient exhibits a continuing decline in mental status, will proceed with tetanus vaccination and rabies immunoglobulin and vaccine Follow up MRI head. LP requested. Obtain RPR, HSV PCR. Started on acyclovir 02/26. Unable t get LP yesterday by IR and today by neurology despite multiple doses of ativan RPR negative. STEPHANIE 13 TS pending for TTP. Continue supportive management [facility] contacted for possible transfer. Awaiting call back (2) Cellulitis Current Visit: Yes Status: Acute Assessment and Plan: On vanc and unasyn. ID following Will obtain MRI left foot to r/o osteomyelitis due to temp spikes Follow up blood cultures. Chest xray for pneumonia came back negative Podiatry consulted for foot cellulitis and recommend no acute intervention for her cellulitis (3) KEMI (acute kidney injury) Current Visit: Yes Status: Acute Assessment and Plan: Likely prerenal. Continue IV fluids (4) Transaminitis Current Visit: Yes Status: Acute Assessment and Plan: Has elevated LFTs possibly due to sepsis. Denies alcohol use. We will check right upper quadrant ultrasound. f/u on labs this am. 02/22 Right upper quadrant ultrasound shows fatty liver-appears to be improving (5) Elevated troponin Current Visit: Yes Status: Acute Assessment and Plan: Likely demand ischemia due infection vs KEMI. trended and remains stable at .06, .07, .07. EKG with nothing acute indicative of ischemia- denies any chest pain (6) Thrombocytopenia Current Visit: Yes Status: Acute Assessment and Plan: Unsure if chronic. Also has leukopenia. I wonder if he has liver issues. Will monitor for now but may end up consulting hematology. RUQ US pending. 02/22 Unsure of chronic also leukopenic right upper quadrant ultrasound does show fatty liver-consult hematology as needed (7) DVT prophylaxis Current Visit: Yes Status: Acute Assessment and Plan: SCDs - Time Spent with Patient Total time spent is greater than 50% in coordination of care (as documented) at patient's floor/unit and/or counseling patient: Internal Medicine: Result - Labs CBC & Chem 7: 02/26/19 07:35 02/26/19 07:35 Labs: Short CBC 02/26/19 Range/Units 07:35 WBC 6.1 (4.3-11.1) K/mcL Hgb 13.0 (12.9-16.9) g/dL Hct 38.9 (37.5-50.1) % Plt Count 69 L (140-400) K/mcL Neutrophils # 3.1 (1.6-8.9) K/mcL BMP 02/26/19 07:35 Sodium 151 H Potassium 3.1 L Chloride 114 H Carbon Dioxide 26 BUN 18 Creatinine 1.51 H Glucose 118 H Calcium 7.7 L - ABG Interpretation ABG results: PT/INR, D-dimer PT 11.6 Seconds (9.4-12.1) 02/21/19 17:24 - Impressions Impressions Brain MRI 02/24/19 14:29 IMPRESSION: Motion degraded study. No evidence of large, acute infarct, within the limits of motion degradation. D/ / 02/25/2019 16:51:59 Feliz Atwood MD / hannah Interpreting Provider: Feliz Atwood MD Consult Discharge Plan - Plan [facility] [Primary Care Provider[facility] - (2) Cellulitis Qualifiers: Site of cellulitis: extremity Site of cellulitis of extremity: lower extremity Laterality: left Qualified Code(s): L03.116 - Cellulitis of left lower limb
[2019-02-26] MEDS ORDERED: *HR* LORazepam 2 MG/ML VIAL IVP ONE (09:43)
[2019-02-26] MEDS: Potassium Chloride Elixir 20 MEQ/15 ML UDC PO SCH ×2 (09:59→11:54)
[2019-02-26] MEDS: Propranolol LA (24 HR) 60 MG CAP.SA.24H PO SCH (09:59)
[2019-02-26] MEDS: Cyanocobalamin (B-12) 1,000 MCG TABLET PO SCH (10:00)
[2019-02-26] MEDS: Thiamine (B-1) 500 MG in 0.9 % Sodium Chloride 100 ML IVPB SCH ×3 (10:01→22:44)
[2019-02-26] MEDS ORDERED: *HR* LORazepam 2 MG/ML VIAL ONE (11:28)
--- NOTE | 2019-02-26 11:56 | Event Note ---
Date of Encounter: 02/26/19 (Lumbar Puncture.) Time of Encounter: 11:53 Chart was reviewed, patient was seen and examined. Lumbar puncture was attempted on this patient to try and help to confirm or rule out central nervous system infectious process. Patient was perhaps prepped and draped in the normal sterile fashion. Landmarks were assessed and localized to the L3-L4 disc interspace. Patient did require sedation as he was confused and combative. The L3-L4 disc interspace was anesthetized with 1% lidocaine and a 20-gauge spinal needle was introduced unsuccessfully. Patient was given ultimately 4 mg of IV Ativan and remained agitated and uncooperative. The spinal needle was thus removed and hemostasis achieved and the procedure was aborted at this time.
--- NOTE | 2019-02-26 11:59 | Neurology Progress Note ---
Date of Encounter: 02/26/19 Time of Encounter: 10:30 Assessment and Plan (1) Change in mental status Current Visit: Yes Status: Acute At this juncture there is not a clear etiology to definitively explain this patient's cognitive and mental status decline. However, unfortunately his confusion and agitation has worsened during the course of this admission. Lumbar puncture was unsuccessful yesterday, and I was unable to complete the study today. I would therefore recommend considering transferring this patient to a tertiary care facility for further assessment and treatment. Qualifiers: Qualified Code(s): R41.82 - Altered mental status, unspecified Subjective Interval history: The chart was reviewed, the patient was seen and examined. Case was discussed with Dr. Hagan for signout as well as with the nursing staff. Patient's mental status has progressively declined since admission. At the time he is nonverbal, moans and groans and thrashes around. He is not following commands, does not make eye contact. He does move all 4 extremities. Lumbar puncture was attempt ed unsuccessfully. Patient after receiving 4 mg of Ativan was still thrashing about and uncooperative. The procedure was therefore aborted. Objective - Constitutional Vitals: Temp Pulse Resp BP Pulse Ox 99.4 F 62 19 145/82 90 02/26/19 08:25 02/26/19 08:25 02/26/19 03:36 02/26/19 08:25 02/26/19 03:36 Exam: Patient is currently very confused and agitated. Breathing heavily, not following commands. He does thrash about moves all 4 extremities. He is not making eye contact. - Neurological Exam Sensorimotor examination: Present: intact, other (overall patient was difficult to assess due to his mental status) Motor Examination: Present: other (Appeared to be weak however this was equal bilaterally and in both upper and lower extremities) Motor examination - left side: 4/5: deltoids, biceps, triceps, wrist flexion, wrist extension, hip flexors, distributor operator, quadriceps, tibialis Anterior, toe extension (EHL), plantarflexion Sensation intact: Present: intact Mental Status Examination: Present: awake, alert, oriented to person, opens eyes to voice, opens eyes to noxious stimulation, makes eye contact (Partially), follows simple commands, localizes noxious stimulation, no spontaneous eye opening to voice or tactile stimulation, demented (Concern he may have baseline dementia), impaired memory, impaired cognition, not reliable historian Cranial nerve examination: Present: PERRL, EOMI (Unable to assess as patient will cooperate with muscle testing), visual moscoso intact (Unable to assess), corneal reflexes brisk symmetrically, sensory to face intact, mastication intact, no facial asymmetry is present, soft palate elevates bilaterally upon phonation (Tongue was black), flexes SCM and trapezius muscles symmetrically with full power (Mild decrease in strength bilaterally), tongue protrudes midline Cerebellar examination: Present: performs finger to nose and heel to ch symm etrically without ataxia (Unable to assess due to Weakness) Results - Laboratory Findings CBC and BMP: 02/26/19 07:35 02/26/19 07:35 Abnormal lab findings: Abnormal lab results WBC 3.8 K/mcL (4.3-11.1) L 02/24/19 09:01 RBC 3.99 M/mcL (4.19-5.50) L 02/26/19 07:35 Hgb 17.9 g/dL (12.9-16.9) H 02/20/19 13:29 Hct 54.0 % (37.5-50.1) H 02/20/19 13:29 Plt Count 69 K/mcL (140-400) L 02/26/19 07:35 MPV 13.0 fL (9.4-12.4) H 02/20/19 13:29 6.0 % (0-4) H 02/25/19 03:27 0.5 K/mcL (0.6-4.6) L 02/23/19 07:11 Nucleated RBCs/100 WBC 0.3 /100 WBC (0) H 02/26/19 07:35 Present (Not Present) A 02/26/19 07:35 Present (Not Present) A 02/26/19 07:35 Decreased (Normal) L 02/26/19 07:35 Immature Plt Fraction 11.0 % (1.1-6.1) H 02/26/19 07:35 1+ (Not Present) A 02/24/19 09:01 ESR 25 mm/hr (0-10) H 02/20/19 13:29 Sodium 151 mEq/L (136-145) H 02/26/19 07:35 Potassium 3.1 mEq/L (3.5-5.1) L 02/26/19 07:35 Chloride 114 mEq/L (98-107) H 02/26/19 07:35 Carbon Dioxide 20 mEq/L (23-29) L 02/24/19 09:01 BUN 36 mg/dL (8-23) H 02/21/19 08:09 1.51 mg/dL (0.70-1.30) H 02/26/19 07:35 Est GFR ( Amer) 55 (> 60) L 02/26/19 07:35 Est GFR (Non-Af Amer) 46 (> 60) L 02/26/19 07:35 Glucose 118 mg/dL (70-105) H 02/26/19 07:35 315 (280-300) H 02/26/19 07:35 Calcium 7.7 mg/dL (8.6-10.3) L 02/26/19 07:35 Phosphorus 2.5 mg/dL (2.7-4.5) L 02/25/19 03:27 Magnesium 3.1 mg/dL (1.6-2.6) H 02/20/19 13:29 > 1500 ng/mL (20-250) H 02/25/19 17:38 1.1 mg/dL (0.3-1.0) H 02/20/19 13:29 0.4 mg/dL (0.0-0.2) H 02/23/19 07:11 AST 102 Units/L (13-39) H 02/23/19 07:11 486 Units/L (30-223) H 02/21/19 08:09 0.04 ng/mL (< 0.04) H* 02/22/19 14:10 93 mg/L (Less than 10) H 02/23/19 11:04 5.1 g/dL (6.4-8.9) L 02/23/19 07:11 2.8 g/dL (3.5-5.7) L 02/23/19 07:11 3.25 g/dL (3.75-5.01) L 02/21/19 16:17 2.3 g/dL (2.4-3.5) L 02/23/19 07:11 Vitamin B12 139 pg/mL (250-1100) L 02/20/19 19:54 Cloudy (Clear) A 02/23/19 11:40 100 mg/dL (Neg-Trace) H 02/23/19 11:40 15 mg/dL (Negative) H 02/23/19 11:40 Small (Negative) H 02/23/19 11:40 2.0 mg/dL (Normal) H 02/23/19 11:40 5-15 per hpf (0-3) H 02/23/19 11:40 15-30 per hpf (0-3) H 02/23/19 11:40 Ur Squamous Epith Cells Many per lpf (None-Few) H 02/23/19 11:40 Ur Culture Indicated? YES (NO) A 02/23/19 11:40 Consult Discharge Plan - Plan [facility]errals: [facility] [Primary Care Provider] -
[2019-02-26] MEDS: 0.9 % Sodium Chloride 1,000 ML IVC SCH (19:42)
[2019-02-27] MEDS: Acyclovir 700 MG in D5% in Water 250 ML IVPB SCH ×2 (00:07→08:41)
--- NOTE | 2019-02-27 02:31 | Event Note ---
Date of Encounter: 02/26/19 Time of Encounter: 22:54 Pt. admitted for dog bite and concern for possible rabies d/t current AMS and mentation changes had NG tube placed earlier today. Pt. is awaiting placement to [facility]. KUB after NG placement showed that the tip is looped within the proximal stomach with side port below the gastroesophageal junction. No other instructions from Radiology. Repeat KUB showed tight kink in the distal portion of this catheter. Alerted by pts. nurse Collins to come and see the pt. d/t odd body movements. Went to see the pt. who was having a Portable CXR done at the time. Nurse described pts. upper and lower extremities as rigid and extended. Nurse woke the pt. and rigidity of extremities subsided. Alerted at 01:51 that the pt. had pulled his NG tube half-way out. Nurse instructed to insert further and get another KUB for placement. Sitter ordered. Nurse instructed to continue monitoring this pt. closely and alert me immediately of any adverse changes or new extremity rigidity. KUB showed NG tip in fundus. Nurse instructed to advance 5-6 cm and get new KUB. KUB showed the tip was kinked in the fundus. NG advanced and new KUB was taken immediately after which showed NG was now looped in the fundus of the stomach. I instructed the nurse to take out the NG tube, make the pt. NPO overnight, and new NG tube would have to be placed in the a.m. Patient is already anxious from having NG tube but leaving NG tube in place that continues to stay kinked or looped is only going to cause more anxiety for this patient. NG removed. Sitter will be DCd when pt. is calm and able to sleep. Nurse instructed to continue monitoring this pt. very closely overnight and alert me immediately of any adverse effects, new extremity rigidity, new agitation, or any new developments.
[2019-02-27 03:16] LABS: Nucleated Red Blood Cells 0.3 /100 WBC (0)
[2019-02-27 03:18] LABS: Hematocrit 38.1 % (37.5-50.1); Immature Platelets 12.7 % (1.1-6.1); Mean Corpuscular HGB Conc 34.1 g/dL (31.6-35.5); Mean Corpuscular Hemoglobin 32.7 pg (28.0-33.3); Mean Platelet Volume 12.2 fL (9.4-12.4); Red Blood Count 3.97 M/mcL (4.19-5.50); Red Cell Distribution Width 13.4 % (11.5-14.5)
[2019-02-27 03:19] LABS: Platelet Count 66 K/mcL (140-400)
[2019-02-27] MEDS: Ampicillin/Sulbactam 3,000 MG in 0.9 % Sodium Chloride Mini Bag 100 ML IVPB SCH ×2 (03:26→08:42)
[2019-02-27 03:35] LABS: BUN/Creatinine Ratio 12 (6-26); Blood Urea Nitrogen 16 mg/dL (8-23); Calcium 7.3 mg/dL (8.6-10.3); Carbon Dioxide 26 mEq/L (23-29); Chloride 111 mEq/L (98-107); Glucose 127 mg/dL (70-105); Magnesium 2.1 mg/dL (1.6-2.6); Osmolality,Calculated 299 (280-300); Phosphorous 2.6 mg/dL (2.7-4.5); Potassium 2.8 mEq/L (3.5-5.1); Sodium 143 mEq/L (136-145); eGFR For African Americans > 60 (> 60); eGFR For Non-African Americans 50 (> 60)
[2019-02-27 03:45] LABS: Eosinophils # 0.2 K/mcL (0.0-0.6); Lymphocytes # 4.5 K/mcL (0.6-4.6); Monocytes # 0.2 K/mcL (0.0-1.3); Neutrophils # 2.9 K/mcL (1.6-8.9); Platelet Estimate Decreased (Normal)
[2019-02-27 03:46] LABS: Reactive Lymphocytes Present (Not Present); Smudge Cells Present (Not Present)
[2019-02-27] MEDS: Cyanocobalamin (B-12) 1,000 MCG TABLET PO SCH (08:36)
[2019-02-27] MEDS: Propranolol LA (24 HR) 60 MG CAP.SA.24H PO SCH (08:36)
--- NOTE | 2019-02-27 08:36 | Internal Med Progress Note ---
Hospitalist Progress Note - Encounter Date of Encounter: 02/27/19 Time of Encounter: 08:35 - Subjective Interval History: No acute events overnight - Exam Vitals: Temp Pulse Resp BP Pulse Ox 97.8 F 100 18 150/93 90 02/27/19 08:05 02/27/19 08:05 02/27/19 08:05 02/27/19 08:05 02/27/19 08:05 Exam: GEN: NAD CVS:RRR. S1, S2, No m/r/g RESP: CTAB ABD: Soft, NT, ND, +BS EXT: No edema, left medial malleolus laceration noted with scattered but no drainage that extends across the medial malleolus horizontally., Other laceration is on the distal leg that is smaller in size with no drainage 2+ DP NEURO: lethargic, confused, not oriented to person or place - Assessment and Plan (1) Metabolic encephalopathy Current Visit: Yes Status: Acute Assessment and Plan: Possibly has some dementia at baseline but per family has apparently been more confused than usual CT head negative for any acute abnormalities. MRI head ordered, neuro consulted and recs appreciated Considering rabies as a possibility for unresolving confusion, but patient does not have the classic signs of rabies 02/25. Discussed with patient's neighbor and extensively, appears the dog's vaccinations are uptodate Patient exhibits a continuing decline in mental status, will proceed with tetanus vaccination and rabies immunoglobulin and vaccine Follow up MRI head. LP requested. Obtain RPR, HSV PCR. Started on acyclovir 02/26. Unable t get LP yesterday by IR and today by neurology despite multiple doses of ativan RPR negative. STEPHANIE 13 TS pending for TTP. Continue supportive management [facility] contacted for possible transfer. Awaiting call back 02/27. Added ceftraixone to regimen for possible lyme disease as his reports tick bites. No distinct rashes noted on exam Awaiting [facility] transfer. Will attempt transfe to [place] if [facility] unsuccessful (2) Cellulitis Current Visit: Yes Status: Acute Assessment and Plan: On vanc and unasyn. ID following Will obtain MRI left foot to r/o osteomyelitis due to temp spikes Follow up blood cultures. Chest xray for pneumonia came back negative Podiatry consulted for foot cellulitis and recommend no acute intervention for her cellulitis (3) KEMI (acute kidney injury) Current Visit: Yes Status: Acute Assessment and Plan: Likely prerenal. Continue IV fluids (4) Transaminitis Current Visit: Yes Status: Acute Assessment and Plan: Has elevated LFTs possibly due to sepsis. Denies alcohol use. We will check right upper quadrant ultrasound. f/u on labs this am. 02/22 Right upper quadrant ultrasound shows fatty liver-appears to be improving (5) Elevated troponin Current Visit: Yes Status: Acute Assessment and Plan: Likely demand ischemia due infection vs KEMI. trended and remains stable at .06, .07, .07. EKG with nothing acute indicative of ischemia- denies any chest pain (6) Thrombocytopenia Current Visit: Yes Status: Acute Assessment and Plan: Unsure if chronic. Also has leukopenia. I wonder if he has liver issues. Will monitor for now but may end up consulting hematology. RUQ US pending. 02/22 Unsure of chronic also leukopenic right upper quadrant ultrasound does show fatty liver-consult hematology as needed (7) DVT prophylaxis Current Visit: Yes Status: Acute Assessment and Plan: SCDs - Time Spent with Patient Total time spent is greater than 50% in coordination of care (as documented) at patient's floor/unit and/or counseling patient: Internal Medicine: Result - Labs CBC & Chem 7: 02/27/19 02:19 02/27/19 02:19 Labs: Short CBC 02/26/19 02/27/19 Range/Units 07:35 02:19 WBC 6.1 8.0 (4.3-11.1) K/mcL Hgb 13.0 13.0 (12.9-16.9) g/dL Hct 38.9 38.1 (37.5-50.1) % Plt Count 69 L 66 L (140-400) K/mcL Neutrophils # 3.1 2.9 (1.6-8.9) K/mcL BMP 02/27/19 02:19 Sodium 143 Potassium 2.8 L Chloride 111 H Carbon Dioxide 26 BUN 16 Creatinine 1.39 H Glucose 127 H Calcium 7.3 L - ABG Interpretation ABG results: PT/INR, D-dimer PT 11.6 Seconds (9.4-12.1) 02/21/19 17:24 - Impressions Impressions KUB X-Ray 02/26/19 18:28 IMPRESSION: Enteric tube tip is looped within the proximal stomach with side port below the gastroesophageal junction. D/ / Jaswant Schreiber MD / Jaswant Schreiber MD Interpreting Provider: Jaswant Schreiber MD X-Ray 02/26/19 23:28 IMPRESSION: Mild to moderate bowel distention. Enteric tube as described D/ / Fer Keyes / Fer Keyes Interpreting Provider: Fer Keyes X-Ray 02/27/19 02:07 IMPRESSION: Redemonstration of a gastric tube that has been slightly advanced compared to prior. D/ / Kirill Yousif / Kirill Yousif Interpreting Provider: Kirill Yousif X-Ray 02/27/19 03:30 FINDINGS/IMPRESSION: The enteric tube is curled back on itself with the tip likely directed retrograde at the gastroesophageal junction. D/ / Shane Gardner MD / Shane Gardner MD Interpreting Provider: Shane Gardner MD X-Ray 02/27/19 04:00 FINDINGS/IMPRESSION: The enteric tube is now coiled with the tip and side hole in the stomach. D/ / Shane Gardner MD / Shane Gardner MD Interpreting Provider: Shane Gardner MD Consult Discharge Plan - Plan [facility]errals: [facility] [Primary Care Provider] - (2) Cellulitis Qualifiers: Site of cellulitis: extremity Site of cellulitis of extremity: lower extremity Laterality: left Qualified Code(s): L03.116 - Cellulitis of left lower limb
[2019-02-27] MEDS: Thiamine (B-1) 500 MG in 0.9 % Sodium Chloride 100 ML IVPB SCH (08:41)
[2019-02-27] MEDS: D5% in Water 1,000 ML IVC SCH (08:41)
[2019-02-27] MEDS ORDERED: cefTRIAXone 2,000 MG in Water for inj. (sterile) 20 ML 20 ML IVP SCH (10:00)
--- NOTE | 2019-02-27 15:38 | Oncology Inp Progress Note ---
Date of Encounter: 02/27/19 Time of Encounter: 15:35 (1) Change in mental status Current Visit: Yes Status: Acute Assessment and plan: Etiology not clear. Neurology consult noted. Currently no evidence of TTP. Renal function improving creatinine 1.39 and platelets improving currently 66K Qualifiers: Qualified Code(s): R41.82 - Altered mental status, unspecified (2) Thrombocytopenia Current Visit: Yes Status: Acute Assessment and plan: Could be related to sepsis. We will check fibrinogen level Oncology: Subj Interval history: Lumbar puncture could not be performed. MRI 02/24/2019 brain without contrast was negative but limited exam due to motion artifact. Neurology consulted noted. Recommendation was to transfer him. Ceftriaxone added to cover lung disease. Viral hepatitis negative. T.pllidum antibody negative - Constitutional Exam: General: Continuation/delirium Difficult exam Lungs: Clear to auscultation with equal air entry Cardiovascular: Regular rate and rhythm. No gallops, murmurs, or rubs. Abdomen: Soft, nontender; Neurological exam is hard to perform. No focal deficits noted Oncology: Obj Data - Labs CBC & Chem 7: 02/27/19 02:19 02/27/19 02:19 Consult Discharge Plan - Plan [facility]errals: [facility] [Primary Care Provider] - Inpatient Charges Provider: Dr. Radha Fernández Follow up - Inpatient: [id number]
[2019-02-27 16:06] VITALS: BP 163/92
[2019-02-27] MEDS ORDERED: Doxycycline 100 MG in 0.9 % Sodium Chloride Mini Bag 100 ML IVPB SCH (18:00)
--- NOTE | 2019-02-27 18:34 | Discharge Summary ---
Orders not resulted at time of discharge: Pending orders 02/23/19 11:04 Culture,Blood [BC] Stat 02/25/19 13:43 Cell Count w Diff, CSF [BF] Routine Culture,CSF [RM] Routine Glucose,CSF [BF] Routine Total Protein,CSF [BF] Routine VDRL reflex titer, CSF Routine 02/25/19 17:38 [id number] Activity Urgent ROSEMARIE IgG DENITA rflx IFA Routine Ehrlichia chaffeensis IgG/IgM Routine Platelet Assoc.Ab,Direct Routine Date of Encounter: 02/27/19 Time of Encounter: 18:00 - Discharge Diagnosis (1) Metabolic encephalopathy Priority: Primary Status: Acute Assessment and Plan: 73 year old male with no significant past medical history who does not follow up with physicians who presents with left ankle pain after a dog bite on FEBRUARY 16. It was "the preacher down the road's bull dog" that bit him. As far as he knows it is a healthy dog. Patient is not the best historian and does not answer appropriately at times. There was no family members at bedside. He tells me that he lives with his . Talking to the ED physician did tell me that the patient has been acting like this since he presented. They believe he has dementia . He was alert to self and place only JACOB. Denies fever and came in due to the pain mainly. left tib/fib xray is negative in the ED. BP low on presentation but came up with IV fluids. Was given Zosyn and vancomycin in the ED. Patients labs in the ED were significant for leukopenia with a WBC count of 2.8. Hemoglobin was 17.9. Platelets were 43 only. He was assessed with cellulitis rubin secondary to dog bite and had a wound on his left ankle. He was initially on vanc and zosyn which was switched to VAnc and unasyn per infectious disease recs. He had imaging of the foot oen which showed no evidence of osteomyelitis. His cellulitis improved but at baseline he wasn't a good historian but then began to become more confused and more lethargic. CT head was negative for any acute abnormalities. MRI head was done and was negative as well for any acute abnormalities. He was seen by neuro and had an EEG done showing moderate encephalopathy. AN LP was attempted unsuccessfully by both neuro and IR due to his agitation despite multiple doses of ativan Rabies was considered a possibility for his persistent AMS though he does not have classic signs of rabies. Discussed with patient's neighbor and extensively, appears the dog's vaccinations are uptodate. He did however receive tetanus vaccination and rabies immunoglobulin and vaccine. He was also started on acyclovir by ID for possible HSV encephalitis. RPR negative. HSV PCR pending. He was seen by oncology and he is being worked up for possible TTP due to thrombocytopenia on arrival. STEPHANIE 13TS pending. Platelets have been trending up. Ceftriaxone was added to his regimen this for possible lyme disease encephalitis. He was transsferred to [facility] for further care. 35minutes was spent discharging this patient (2) Cellulitis Priority: Primary Status: Acute Assessment and Plan: On vanc and unasyn. ID following Will obtain MRI left foot to r/o osteomyelitis due to temp spikes Follow up blood cultures. Chest xray for pneumonia came back negative Podiatry consulted for foot cellulitis and recommend no acute intervention for her cellulitis Qualifiers: Site of cellulitis: extremity Site of cellulitis of extremity: lower extremity Laterality: left Qualified Code(s): L03.116 - Cellulitis of left lower limb (3) KEMI (acute kidney injury) Priority: Primary Status: Acute (4) Transaminitis Priority: Primary Status: Acute (5) Elevated troponin Priority: Primary Status: Acute (6) Thrombocytopenia Priority: Primary Status: Acute (7) DVT prophylaxis Priority: Primary Status: Acute Hospital course: Mr. Lemos is a 73 year old male - Time Spent with Patient Total time spent providing and/or coordinating discharge services: - Discharge Medications Prescriptions: No Action Sertraline [Zoloft] 50 mg PO DAILY Prazosin [Minipress] 1 mg PO HS Propranolol LA (24 HR) [Inderal LA] 60 mg PO DAILY Lisinopril [Zestril] 10 mg PO DAILY Cholecalciferol (D-3) [Vitamin D] 1,000 unit PO DAILY Atorvastatin [Lipitor] 10 mg PO HS Ranitidine HCl [Acid Broadcasting Equipment Mechanic] 150 mg PO BID PRN PRN Reason: Heartburn Home Medications: Sertraline [Zoloft] 50 mg PO DAILY 02/21/19 [History] Prazosin [Minipress] 1 mg PO HS 02/22/19 [History] Propranolol LA (24 HR) [Inderal LA] 60 mg PO DAILY 02/23/19 [History] Atorvastatin [Lipitor] 10 mg PO HS 02/25/19 [History] Cholecalciferol (D-3) [Vitamin D] 1,000 unit PO DAILY 02/25/19 [History] Lisinopril [Zestril] 10 mg PO DAILY 02/25/19 [History] Ranitidine HCl [Acid Broadcasting Equipment Mechanic] 150 mg PO BID PRN 02/25/19 [History] Allergies/Adverse Reactions: Allergy/AdvReac Type Severity Reaction Status Date / Time No Known Allergies Allergy Verified 02/22/19 12:20 Date of admission: 02/20/19 18:33 Primary care physician: [facility] Consults: 02/20/19 17:09 Consult to Infectious Diseases [CONS] Routine Consulting Provider: Infectious Disease [facility] Reason for Consult: dog bite Call Completed: No 02/21/19 08:03 Consult to Surgery [CONS] Routine Consulting Provider: Acute Care Surgery Reason for Consult: dog bite/abnormal CT Call Completed: Yes 02/21/19 09:44 Consult to Oncology Hematology [CONS] Routine Consulting Provider: Gildardo Montesinos Reason for Consult: Leukopenia/thrombocytopenia Call Completed: No 02/24/19 11:50 Consult to Podiatry [CONS] Routine Consulting Provider: [facility] Reason for Consult: left foot cellulitis Call Completed: No 02/24/19 12:19 Consult to Neurology [CONS] Routine Consulting Provider: [facility] Reason for Consult: persistent confusion Call Completed: Yes 02/24/19 17:04 Consult to Interpret Exam [CONS] Routine Consulting Provider: Keeley Hgaan Consult to Interpret Exam: Interpret EEG 02/25/19 09:55 Consult to Speech Therapy [CONS] Routine Comment: Evaluate, develop and implement POC Reason for Consult: dysphagia Call Completed: No - Constitutional Vitals: Temp Pulse Resp BP Pulse Ox 98.9 F 86 18 163/92 92 02/27/19 16:05 02/27/19 16:05 02/27/19 16:05 02/27/19 16:05 02/27/19 16:05 Exam: GEN: NAD CVS:RRR. S1, S2, No m/r/g RESP: CTAB ABD: Soft, NT, ND, +BS EXT: No edema, left medial malleolus laceration noted with scattered but no drainage that extends across the medial malleolus horizontally., Other laceration is on the distal leg that is smaller in size with no drainage 2+ DP NEURO: lethargic, confused, not oriented to person or place - Patient Status Disposition: Transfer Other Condition: Fair - Discharge Instructions Follow Up With: [facility] [Primary Care Provider] -
[2019-02-28 09:50] LABS: ANA IgG by ELISA NONE DETECTED (None Detected)
== END 2019-02-27 17:25 | disposition other institution (70) | DRG 871 ==
LOC: EMEROOARM 11:42 → 2ANU 11:42 → SUATTDRO 18:33
PROVIDERS: ADMIT Internal Medicine Nephrology; ATTEND Internal Medicine

== ENCOUNTER 2019-09-15 10:05 | Inpatient (IN) ==
[2019-09-15] MEDS ORDERED: Morphine Sulfate 2 MG/ML SYRINGE IVP ONE (11:53)
[2019-09-15 12:20] LABS: INR 1.1; Prothrombin Time 12.2 Seconds (9.4-12.1)
[2019-09-15 12:23] LABS: Activated Partial Thrombo Time 27.9 Seconds (26.0-36.0)
[2019-09-15 12:29] LABS: Basophils % 0.2 %; Eosinophils % 0.1 %; Hemoglobin 13.8 g/dL (12.9-16.9); Immature Granulocytes % 0.7 % (0-4); Lymphocytes # 1.8 K/mcL (0.6-4.6); Lymphocytes % 12.4 %; Mean Corpuscular HGB Conc 33.7 g/dL (31.6-35.5); Mean Corpuscular Hemoglobin 32.3 pg (28.0-33.3); Mean Platelet Volume 11.2 fL (9.4-12.4); Monocytes # 1.2 K/mcL (0.0-1.3); Monocytes % 8.1 %; Neutrophils # 11.1 K/mcL (1.6-8.9); Platelet Count 157 K/mcL (140-400); Red Blood Count 4.27 M/mcL (4.19-5.50); Red Cell Distribution Width 13.2 % (11.5-14.5); Segmented Neutrophils % 78.5 %; White Blood Count 14.2 K/mcL (4.3-11.1)
[2019-09-15 12:36] LABS: BUN/Creatinine Ratio 21 (6-26); Blood Urea Nitrogen 27 mg/dL (8-23); Calcium 9.4 mg/dL (8.6-10.3); Carbon Dioxide 27 mEq/L (23-29); Chloride 102 mEq/L (98-107); Glucose 125 mg/dL (70-105); Osmolality,Calculated 295 (280-300); Potassium 3.7 mEq/L (3.5-5.1); Sodium 139 mEq/L (136-145); eGFR For African Americans > 60 (> 60); eGFR For Non-African Americans 54 (> 60)
[2019-09-15 12:52] LABS: Bilirubin,Urine Small (Negative); Blood,Urine Negative (Negative); Clarity,Urine Clear (Clear); Color,Urine Dark Yellow (Yellow); Glucose,Urine (UA) Normal (Normal); Ketones,Urine Trace mg/dL (Negative); Leukocyte Esterase,Urine Negative (Negative); Nitrite,Urine Negative (Negative); PH,Urine 5.5 pH Units (5.0-8.0); Protein,Urine 100 mg/dL (Neg-Trace); Specific Gravity,Urine > 1.030 (1.010-1.025); Urobilinogen,Urine Normal (Normal)
[2019-09-15 12:58] LABS: Bacteria,Urine None Seen per hpf (None-Few); Hyaline Casts,Urine None Seen per lpf (None-Few); RBC,Urine 0-3 per hpf (0-3); Squamous Epithelial Cell,Urine Moderate per lpf (None-Few); WBC,Urine 0-3 per hpf (0-3)
[2019-09-15] MEDS ORDERED: Ondansetron 4 MG/2 ML VIAL IVP PRN (13:16)
[2019-09-15] MEDS ORDERED: *HR* Promethazine 25 MG/ML VIAL IVP PRN (13:16)
[2019-09-15] MEDS ORDERED: Naloxone 0.4 MG/ML INJ IVP PRN (13:16)
[2019-09-16 06:13] LABS: INR 1.1; Prothrombin Time 12.4 Seconds (9.4-12.1)
[2019-09-16 06:32] LABS: BUN/Creatinine Ratio 22 (6-26); Blood Urea Nitrogen 25 mg/dL (8-23); Calcium 9.2 mg/dL (8.6-10.3); Carbon Dioxide 26 mEq/L (23-29); Chloride 101 mEq/L (98-107); Glucose 111 mg/dL (70-105); Osmolality,Calculated 295 (280-300); Potassium 3.4 mEq/L (3.5-5.1); Sodium 140 mEq/L (136-145); eGFR For African Americans > 60 (> 60); eGFR For Non-African Americans > 60 (> 60)
[2019-09-16 06:41] LABS: Basophils % 0.3 %; Eosinophils # 0.2 K/mcL (0.0-0.6); Eosinophils % 1.5 %; Hematocrit 37.6 % (37.5-50.1); Immature Granulocytes % 0.6 % (0-4); Lymphocytes % 18.4 %; Mean Corpuscular HGB Conc 34.6 g/dL (31.6-35.5); Mean Corpuscular Hemoglobin 32.7 pg (28.0-33.3); Mean Corpuscular Volume 94.7 fL (83.0-100.0); Mean Platelet Volume 11.9 fL (9.4-12.4); Monocytes % 8.8 %; Neutrophils # 7.8 K/mcL (1.6-8.9); Platelet Count 158 K/mcL (140-400); Red Blood Count 3.97 M/mcL (4.19-5.50); Segmented Neutrophils % 70.4 %; White Blood Count 11.1 K/mcL (4.3-11.1)
[2019-09-17] MEDS: Propranolol LA (24 HR) 60 MG CAP.SA.24H PO SCH (08:40)
[2019-09-18] MEDS: Propranolol LA (24 HR) 60 MG CAP.SA.24H PO SCH (09:23)
[2019-09-18 09:30] LABS: Hemoglobin 13.9 g/dL (12.9-16.9); Mean Corpuscular HGB Conc 33.9 g/dL (31.6-35.5); Mean Corpuscular Hemoglobin 32.8 pg (28.0-33.3); Mean Corpuscular Volume 96.7 fL (83.0-100.0); Mean Platelet Volume 10.2 fL (9.4-12.4); Platelet Count 217 K/mcL (140-400); Red Blood Count 4.24 M/mcL (4.19-5.50); White Blood Count 11.1 K/mcL (4.3-11.1)
[2019-09-18] MEDS ORDERED: Clindamycin 900 MG/50 ML 900 MG/50 ML IV.SOLN IVPB ONE ×2 (14:00→20:10)
[2019-09-18] MEDS ORDERED: *HR* HYDROmorphone (PF) 1 MG/ML SYRINGE IVP PRN ×2 (18:01→22:36)
[2019-09-18] MEDS ORDERED: *HR* Meperidine 25 MG/ML SYRINGE IVP PRN ×2 (18:01→22:36)
[2019-09-18] MEDS ORDERED: *HR* OxyCODONE Immed Rel 5 MG TABLET PO PRN ×2 (18:01→22:36)
[2019-09-18] MEDS ORDERED: Acetaminophen IV 1,000 MG/100 ML INFUS..BTL IVPB ONE ×2 (18:01→22:36)
[2019-09-18] MEDS ORDERED: *HR* FentaNYL (PF) 100 MCG/2 ML VIAL IVP PRN ×2 (18:01→22:36)
[2019-09-18] MEDS ORDERED: *HR* Propofol 200 MG/20 ML VIAL IVP ONE (18:08)
[2019-09-18] MEDS ORDERED: *HR* FentaNYL (PF) 100 MCG/2 ML VIAL ONE (19:15)
[2019-09-18] MEDS ORDERED: EPHEDrine 50 MG/ML VIAL ONE (19:15)
[2019-09-18] MEDS ORDERED: *HR* Promethazine 25 MG/ML VIAL IVP PRN (22:36)
[2019-09-18] MEDS ORDERED: Naloxone 0.4 MG/ML INJ IVP PRN (22:36)
[2019-09-18] MEDS ORDERED: Ondansetron 4 MG/2 ML VIAL IVP PRN (22:36)
[2019-09-18] MEDS: Clindamycin 900 MG/50 ML 900 MG/50 ML IV.SOLN IVPB SCH (23:50)
[2019-09-19 04:58] LABS: Hematocrit 36.5 % (37.5-50.1); Mean Corpuscular HGB Conc 33.4 g/dL (31.6-35.5); Mean Corpuscular Hemoglobin 32.6 pg (28.0-33.3); Mean Corpuscular Volume 97.6 fL (83.0-100.0); Mean Platelet Volume 10.4 fL (9.4-12.4); Platelet Count 189 K/mcL (140-400); Red Blood Count 3.74 M/mcL (4.19-5.50); Red Cell Distribution Width 12.4 % (11.5-14.5); White Blood Count 11.6 K/mcL (4.3-11.1)
[2019-09-19 05:06] LABS: Hemoglobin 12.2 g/dL (12.9-16.9)
[2019-09-19] MEDS ORDERED: Propranolol LA (24 HR) 60 MG CAP.SA.24H PO SCH (09:00)
[2019-09-19] MEDS: Clindamycin 900 MG/50 ML 900 MG/50 ML IV.SOLN IVPB SCH ×2 (10:06→17:21)
[2019-09-19] MEDS ORDERED: 0.9 % Sodium Chloride 1,000 ML ONE (23:12)
[2019-09-20] MEDS ORDERED: 0.9 % Sodium Chloride 1,000 ML IVC ONE ×2 (01:33→01:45)
[2019-09-20 07:22] LABS: Hematocrit 31.3 % (37.5-50.1); Mean Corpuscular HGB Conc 33.9 g/dL (31.6-35.5); Mean Corpuscular Hemoglobin 32.5 pg (28.0-33.3); Mean Platelet Volume 10.6 fL (9.4-12.4); Platelet Count 169 K/mcL (140-400); Red Blood Count 3.26 M/mcL (4.19-5.50); Red Cell Distribution Width 12.8 % (11.5-14.5)
[2019-09-20 07:24] LABS: Hemoglobin 10.6 g/dL (12.9-16.9)
[2019-09-20 07:41] LABS: Calcium 8.5 mg/dL (8.6-10.3); Magnesium 2.5 mg/dL (1.6-2.6); Potassium 3.8 mEq/L (3.5-5.1)
[2019-09-20] MEDS: Acetaminophen 325 MG TABLET PO PRN ×3 (08:52→19:57)
[2019-09-20 15:02] LABS: Hematocrit 32.2 % (37.5-50.1); Hemoglobin 10.8 g/dL (12.9-16.9)
[2019-09-21 06:09] LABS: Hematocrit 34.4 % (37.5-50.1); Hemoglobin 11.2 g/dL (12.9-16.9); Mean Corpuscular HGB Conc 32.6 g/dL (31.6-35.5); Mean Corpuscular Hemoglobin 32.5 pg (28.0-33.3); Mean Corpuscular Volume 99.7 fL (83.0-100.0); Mean Platelet Volume 10.6 fL (9.4-12.4); Platelet Count 194 K/mcL (140-400); Red Blood Count 3.45 M/mcL (4.19-5.50); White Blood Count 10.7 K/mcL (4.3-11.1)
[2019-09-21 06:34] LABS: Alanine Aminotransferase 19 Units/L (7-52); Albumin 3.4 g/dL (3.5-5.7); Alkaline Phosphatase 110 Units/L (34-104); Aspartate Amino Transferase 39 Units/L (13-39); BUN/Creatinine Ratio 27 (6-26); Bilirubin,Direct 0.2 mg/dL (0.0-0.2); Bilirubin,Indirect 0.4 mg/dL (0.0-1.0); Bilirubin,Total 0.6 mg/dL (0.3-1.0); Blood Urea Nitrogen 36 mg/dL (8-23); Calcium 9.2 mg/dL (8.6-10.3); Carbon Dioxide 24 mEq/L (23-29); Chloride 104 mEq/L (98-107); Globulin 3.4 g/dL (2.4-3.5); Glucose 125 mg/dL (70-105); Magnesium 2.5 mg/dL (1.6-2.6); Osmolality,Calculated 302 (280-300); Potassium 3.3 mEq/L (3.5-5.1); Sodium 141 mEq/L (136-145); Total Protein 6.8 g/dL (6.4-8.9); eGFR For African Americans > 60 (> 60); eGFR For Non-African Americans 54 (> 60)
[2019-09-21] MEDS: Propranolol LA (24 HR) 60 MG CAP.SA.24H PO SCH (13:47)
[2019-09-22 02:10] LABS: Hematocrit 31.2 % (37.5-50.1); Hemoglobin 10.7 g/dL (12.9-16.9); Mean Corpuscular HGB Conc 34.3 g/dL (31.6-35.5); Mean Corpuscular Hemoglobin 32.7 pg (28.0-33.3); Mean Corpuscular Volume 95.4 fL (83.0-100.0); Mean Platelet Volume 10.2 fL (9.4-12.4); Platelet Count 213 K/mcL (140-400); Red Blood Count 3.27 M/mcL (4.19-5.50); White Blood Count 9.4 K/mcL (4.3-11.1)
[2019-09-22 02:29] LABS: BUN/Creatinine Ratio 21 (6-26); Blood Urea Nitrogen 23 mg/dL (8-23); Calcium 8.8 mg/dL (8.6-10.3); Carbon Dioxide 22 mEq/L (23-29); Chloride 111 mEq/L (98-107); Glucose 123 mg/dL (70-105); Osmolality,Calculated 291 (280-300); Potassium 4.1 mEq/L (3.5-5.1); Sodium 138 mEq/L (136-145); eGFR For African Americans > 60 (> 60); eGFR For Non-African Americans > 60 (> 60)
[2019-09-22] MEDS: Propranolol LA (24 HR) 60 MG CAP.SA.24H PO SCH (08:05)
[2019-09-22] MEDS: Acetaminophen 325 MG TABLET PO PRN (08:08)
[2019-09-22 10:17] VITALS: BP 118/79
== END 2019-09-22 12:40 | DRG 469 ==
LOC: EMEROOARM 10:05 → 3NENU 10:05 → SUATTDRO 13:16 → 3NENU 13:50 → UNDODISIN 09-17 20:20
PROVIDERS: ADMIT Internal Medicine; ATTEND Internal Medicine